=== PATIENT | female | born 1940 | race African-American/Black ===

== ENCOUNTER 2017-04-23 16:52 | Emergency (ER) | payer MEDICARE, OTHER ==
[~2017-04-23] VITALS: Ht 160 cm; Wt 57.6 kg
[~2017-04-23 16:52] MED LIST: ALPRAZOLAM1 MG PO; DORZOLAMIDE HCL10 ML RIGHT EYE; NORCO 5-325 TA1 EACH PO; NORVASC10 MG PO
[2017-04-23] MEDS ORDERED: Meclizine 25mg tab ORAL PRN (17:30)
[2017-04-23 18:30] VITALS: BP 153/82
[2017-04-23 19:30] VITALS: BP_SYST 144; BP_SYST 151; BP_DIAS 94; BP_DIAS 95
[2017-04-23 19:51] LABS: BASOPHILS % (AUTO) 1.3 % (0.0-2.0); EOSINOPHILS % (AUTO) 2.6 % (0.0-3.0); LYMPHOCYTES % (AUTO) 41.3 % (20.0-45.0); MEAN CORPUSCULAR HEMOGLOBIN 27.4 PG (27.0-31.0); MEAN CORPUSCULAR HGB CONC 31.1 G/DL (32.0-36.0); MEAN CORPUSCULAR VOLUME 88 FL (80-99); MEAN PLATELET VOLUME 6.3 FL (6.5-10.1); MONOCYTES % (AUTO) 5.4 % (1.0-10.0); NEUTROPHILS % (AUTO) 49.3 % (45.0-75.0); PLATELET COUNT 351 K/UL (150-450); RED BLOOD COUNT 4.61 M/UL (4.20-5.40); RED CELL DISTRIBUTION WIDTH 14.6 % (11.6-14.8)
[2017-04-23 19:53] LABS: APPEARANCE,URINE SLIGHTLY CLOUDY; KETONES,URINE NEGATIVE (NEGATIVE); LEUKOCYTE ESTERASE ,URINE NEGATIVE (NEGATIVE); NITRITE,URINE NEGATIVE (NEGATIVE); PH,URINE 7 (4.5-8.0); PROTEIN,URINE NEGATIVE (NEGATIVE); UROBILINOGEN,URINE NORMAL MG/DL (0.0-1.0)
[2017-04-23 20:09] LABS: BACTERIA,URINE OCCASIONAL /HPF; RBC,URINE 0-2 /HPF (0 - 2); SQUAMOUS EPITHELIAL CELL,UR OCCASIONAL /LPF (NONE/OCC); WBC,URINE 0 /HPF (0 - 2)
[2017-04-23 20:16] LABS: TROPONIN I < 0.30 ng/mL (<=0.30)
[2017-04-23 20:19] LABS: ALANINE AMINOTRANSFERASE 6 U/L (3-33); ALBUMIN/GLOBULIN RATIO 0.8 (1.0-2.7); ANION GAP 16 (5-15); ASPARTATE AMINO TRANSFERASE 17 U/L (5-40); CALCIUM 9.7 mg/dL (8.6-10.2); CARBON DIOXIDE 27 mEQ/L (20-30); CHLORIDE 95 mEQ/L (98-107); CREATININE 0.9 mg/dL (0.5-0.9); HEMOLYSIS 0; POTASSIUM 4.1 mEQ/L (3.4-4.9); PROTHROMBIN TIME 10.2 SEC (9.30-11.50); SODIUM 138 mEQ/L (135-145); TOTAL PROTEIN 9.6 g/dL (6.6-8.7)
[2017-04-23 20:30] VITALS: BP 138/74
[2017-04-23] MEDS ORDERED: Norco 10mg/325mg tab ORAL ONE (20:45)
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
[2017-04-23] MEDS ORDERED: VISTARIL25 M1 PO (22:29)
[2017-04-23 22:30] VITALS: BP 153/71
[2017-04-23 22:50] VITALS: BP 147/71
--- NOTE | 2017-04-24 08:13 | Diagnostic Imaging Report ---
Indications: Shortness of breath, dizziness Technique: Portable AP chest Findings: Comparison: 09/01/2012 Cardiac silhouette remains normal in size. Pulmonary vasculature remains within normal limits. Inspiratory effort has decreased. Visualized portions of lungs and pleura remain clear. Levoscoliosis, thoracic vertebral degenerative changes unchanged. IMPRESSION: No evidence of acute disease, unchanged Stable chronic changes as described
--- NOTE | 2017-04-26 20:16 | Cardiology Report ---
APPROVED REPORT EKG Measurement Heart [id number] Normal sinus rhythm Minimal voltage criteria for LVH, may be normal variant Borderline ECG
== END 2017-04-23 22:50 | disposition home or self-care (01) ==
LOC: EMR 17:15
DX: F43.10 Post-traumatic stress disorder, unspecified (principal); X58.XXXA Exposure to other specified factors, initial encounter; Y93.9 Activity, unspecified; Y92.9 Unspecified place or not applicable; F43.20 Adjustment disorder, unspecified; R42 Dizziness and giddiness; G89.29 Other chronic pain; Z88.6 Allergy status to analgesic agent; I10 Essential (primary) hypertension
CPT/HCPCS: 36415; 71010; 80053; 81003; 82550; 83880; 84484; 85025; 85610; 85730; 93005; 99283

== ENCOUNTER 2017-10-07 12:38 | Day surgery (SDC) | payer MEDICARE, OTHER ==
--- NOTE | 2017-10-06 15:00 | Pre-op HX & Phy Repo 2 SIG ---
DATE OF ADMISSION: 10/07/2017 PRE-ENDOSCOPY HISTORY AND PHYSICAL DATE OF ENDOSCOPY: 10/07/2017. HISTORY: The patient is a 76-year-old female in fairly stable health who has had surgery for ulcerative colitis including proctocolectomy and Kock pouch continent ileostomy. The patient recently has developed difficulty inserting her intubation catheter because of stenosis of the stoma and was going to undergo endoscopy of her Kock pouch. 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 OPERATIONS: See the above. MEDICATIONS: [place], Xanax and Lexapro. ALLERGIES: Dilaudid and codeine cause side effects. PHYSICAL EXAMINATION: GENERAL: The patient is well developed and well nourished. No distress. HEENT: Within normal limits. LUNGS: Clear. HEART: Regular rhythm. BREASTS: Without masses. ABDOMEN: Soft. There is a long midline scar with two small areas in the midline incision at the mid point and lower pole, which are the openings of the enterocutaneous fistula tracts. PELVIC: Per primary care physicians. RECTAL: Status post proctectomy. EXTREMITIES: Without edema. NEUROLOGIC: No lateralizing findings. IMPRESSION: 1. Malfunctioning Kock pouch with difficulty with intubation and stenotic stoma. 2. History of ulcerative colitis. 3. Status post multiple abdominal operations. 3.1. Proctocolectomy and Ivana ileostomy in 1978. 3.2. Kock pouch in 1987 followed by two subsequent revisions. 3.3. Laparotomy with revision of partially slipped valve of Kock pouch in 11/2011. 3.4. Revision of Kock pouch stoma in 03/2012. 3.5. Laparotomy with repair of Kock pouch perforation in 07/2012. PLAN: The patient will undergo endoscopy of her pouch without requiring any anesthesia or sedation. She understands and agrees to proceed. Juan Torrez M.D. DR: KEENA JOB#: [id number] CC:
[~2017-10-07] VITALS: Ht 160 cm; Wt 56.2 kg
[~2017-10-07 12:38] MED LIST changes: +VISTARIL25 M1 PO
--- NOTE | 2017-10-07 12:45 | Pre-Procedure Note/Attestation ---
Pre-Procedure Note/Attestation Complete Prior to Procedure Planned Procedure: not applicable Procedure Narrative: Kock Pouch endoscopy Indications for Procedure Pre-Operative Diagnosis: malfunctioning Kock Pouch continent ileostomy Attestation I attest that I discussed the nature of the procedure; its benefits; risks and complications; and alternatives (and the risks and benefits of such alternatives ), prior to the procedure, with the patient (or the patient's legal outbound telemarketing representative). I attest that, if there was a reasonable possibility of needing a blood transfusion, the patient (or the patient's legal outbound telemarketing representative) was given the [facility] standardized written summary, pursuant to the [place] Blood Safety Act ([place] Health and Safety Code # 1645, as amended). I attest that I re-evaluated the patient just prior to the surgery and that there has been no change in the patient's H&P, except as documented below:none JOSEPH MOREIRA Oct 07, 2017 12:45
[2017-10-07 13:23] VITALS: BP 140/88
--- NOTE | 2017-10-07 13:38 | Brief Operative Note ---
Immediate Post Operative Note Operative Note Pre-op Diagnosis: malfunctioning Kock Pouch continent ileostomy Procedure: Kock Pouch endoscopy Post-op Diagnosis: stoma stenosis Post-op Diagnosis: same as pre-op Findings: consistent w/pre-op dx studies Surgeon: amanda Anesthesia: other - none Specimen: none Complications: none Condition: stable Fluids: none Estimated Blood Loss: none Drains: none Implant(s) used?: No JOSEPH MOREIRA Oct 07, 2017 13:38
[2017-10-07 13:40] VITALS: BP 139/94
[2017-10-07 14:35] VITALS: BP 134/95
--- NOTE | 2017-10-07 19:15 | Procedure Note ---
DATE OF PROCEDURE: 10/07/2017 ENDOSCOPIST: Juan Torrez M.D. FIRER LOW PRESSURE: None. ANESTHESIA: None. SEDATION: None. PRE-ENDOSCOPY DIAGNOSES: 1. Malfunctioning Kock pouch continent ileostomy with difficulty with intubation. 2. History of ulcerative colitis. 3. Status post proctocolectomy and Kock pouch. POST-ENDOSCOPY DIAGNOSES: 1. Malfunctioning Kock pouch continent ileostomy with difficulty with intubation. 2. History of ulcerative colitis. 3. Status post proctocolectomy and Kock pouch. ENDOSCOPY PERFORMED: Kock pouch endoscopy. FINDINGS: Stenosis of the stoma with slight angulation of the access segment with a normal pouch and normal nipple valve. DESCRIPTION OF PROCEDURE: The patient was positioned supine in the GI lab without any anesthesia or sedation given or required. Using a GIF-P140 endoscope, the stoma was entered and there was one mild angulation at the 3 cm depth, but the pouch was readily entered. The distance to the tip of the valve was approximately 7 cm. The pouch was distensible and appears normal. Retroflexed views revealed a circumferentially well-formed nipple valve. Withdrawal views confirmed the above findings. After removing the endoscope, I was able to readily insert a 28-Syriac Miller catheter into the pouch to decompress it. The patient will be given a small and large stent to help keep the stoma from becoming more stenotic. The patient tolerated the endoscopy well and was given both a 28-Syriac Miller and 26-Syriac Miller catheters to supplement her 30-Syriac Medena intubation catheters. Juan Torrez M.D. DR: Sole JOB#: [id number] CC:
== END 2017-10-07 14:35 | disposition home or self-care (01) ==
LOC: GAS 12:38
DX: K94.13 Enterostomy malfunction (principal); K51.90 Ulcerative colitis, unspecified, without complications; Z90.49 Acquired absence of other specified parts of digestive tract; Z88.6 Allergy status to analgesic agent

== ENCOUNTER 2018-05-11 09:55 | Inpatient (IN) | payer MEDICARE, MEDICAID ==
[~2018-05-11] VITALS: Ht 160 cm; Wt 72.6 kg
[2018-05-11] MEDS: D5 1/4NS w/KCl 20mEq 1,000 ML IV SCH ×2 (12:49→22:59)
[2018-05-11 12:50] VITALS: BP 132/92
[2018-05-11 13:18] LABS: APPEARANCE,URINE CLEAR; BILIRUBIN, URINE NEGATIVE (NEGATIVE); COLOR,URINE PALE YELLOW; GLUCOSE, URINE (UA) NEGATIVE (NEGATIVE); KETONES,URINE NEGATIVE (NEGATIVE); LEUKOCYTE ESTERASE ,URINE 3+ (NEGATIVE); NITRITE,URINE NEGATIVE (NEGATIVE); PH,URINE 6.5 (4.5-8.0); PROTEIN,URINE NEGATIVE (NEGATIVE); UROBILINOGEN,URINE NORMAL MG/DL (0.0-1.0)
[2018-05-11 13:20] LABS: ANION GAP 9 mmol/L (5-15); BLOOD UREA NITROGEN 6 mg/dL (7-18); CALCIUM 9.8 MG/DL (8.5-10.1); CARBON DIOXIDE 30 MMOL/L (21-32); CHLORIDE 101 MMOL/L (98-107); CREATININE 0.9 MG/DL (0.55-1.30); POTASSIUM 3.5 MMOL/L (3.5-5.1); SODIUM 140 MMOL/L (136-145)
[2018-05-11 13:25] LABS: ALANINE AMINOTRANSFERASE 14 U/L (12-78); ALBUMIN/GLOBULIN RATIO 0.6 (1.0-2.7); ALKALINE PHOSPHATASE 101 U/L (46-116); ASPARTATE AMINO TRANSFERASE 18 U/L (15-37); BILIRUBIN,TOTAL 0.3 MG/DL (0.2-1.0)
[2018-05-11 13:42] LABS: EOSINOPHILS % (AUTO) 2.6 % (0.0-3.0); HEMATOCRIT 40.1 % (37.0-47.0); HEMOGLOBIN 12.3 G/DL (12.0-16.0); LYMPHOCYTES % (AUTO) 36.1 % (20.0-45.0); MEAN CORPUSCULAR VOLUME 85 FL (80-99); MONOCYTES % (AUTO) 4.2 % (1.0-10.0); NEUTROPHILS % (AUTO) 56.1 % (45.0-75.0); PLATELET COUNT 337 K/UL (150-450); RED BLOOD COUNT 4.72 M/UL (4.20-5.40); RED CELL DISTRIBUTION WIDTH 14.8 % (11.6-14.8); WHITE BLOOD COUNT 9.1 K/UL (4.8-10.8)
--- NOTE | 2018-05-11 13:54 | Emergency Room Report ---
History of Present Illness General Chief Complaint: Malfunctioning Gastric Tube Present Illness HPI This patient of Dr. Torrez (surgeon) is here b/c she cannot intubate her BCIR site (stoma) right abdomen. It has gotten progressively more difficult to thread and now she cannot. She has had this difficulty before but it's worse now. A/w mild generalized abd bloating/mild distention. No vomiting, no fever, no dysuria, no urgency. She last underwent procedure Oct 2017 to open pouch. DATE OF ENDOSCOPY: 10/07/2017. HISTORY: The patient is a 76-year-old female in fairly stable health who has had surgery for ulcerative colitis including proctocolectomy and Kock pouch continent ileostomy. The patient recently has developed difficulty inserting her intubation catheter because of stenosis of the stoma and was going to undergo endoscopy of her Kock pouch. 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 MEDICATIONS: [place], Xanax and Lexapro. IMPRESSION: 1. Malfunctioning Kock pouch with difficulty with intubation and stenotic stoma. 2. History of ulcerative colitis. 3. Status post multiple abdominal operations. 3.1. Proctocolectomy and Ivana ileostomy in 1978. 3.2. Kock pouch in 1987 followed by two subsequent revisions. 3.3. Laparotomy with revision of partially slipped valve of Kock pouch in 11/2011. 3.4. Revision of Kock pouch stoma in 03/2012. 3.5. Laparotomy with repair of Kock pouch perforation in 07/2012. Allergies: Coded Allergies: CODEINE (Verified Allergy, Unknown, 11/24/11) MORPHINE (Verified Allergy, Unknown, 07/22/12) Nursing Documentation-PMH Hx Cardiac Problems: No Hx Hypertension: Yes Hx Asthma: No Hx COPD: No Hx Cancer: No Hx Gastrointestinal Problems: Yes - tim pouch Hx Neurological Problems: No Review of Systems Constitutional: Reports: no symptoms Eye: Reports: no symptoms ENT: Reports: no symptoms Respiratory: Reports: no symptoms Cardiovascular: Reports: no symptoms Gastrointestinal: Reports: see HPI, abdominal pain Genitourinary: Reports: no symptoms Musculoskeletal: Reports: no symptoms Skin: Reports: no symptoms Psychiatric: Reports: no symptoms Neurological: Reports: no symptoms Endocrine: Reports: no symptoms Hematologic/Lymphatic: Reports: no symptoms Allergic: Reports: no symptoms Physical Exam Vital Signs Date Time Temp Pulse Resp B/P (MAP) Pulse Ox O2 Delivery O2 Flow Rate FiO2 05/11/18 10:08 98.1 84 18 147/95 95 Room Air 98.1 Sp02 EP Interpretation: reviewed, normal General Appearance: normal inspection, well appearing, no apparent distress, alert, GCS 15, non-toxic Head: normocephalic, atraumatic Eyes: bilateral eye normal inspection, bilateral eye PERRL, bilateral eye EOMI ENT: normal ENT inspection, hearing grossly normal, normal pharynx, no angioedema, normal voice, moist mucus membranes Neck: normal inspection, full range of motion, supple, no meningismus, no bony tend Respiratory: normal inspection, lungs clear, normal breath sounds, no rhonchi, no respiratory distress, no retraction, no accessory muscle use, no wheezing Cardiovascular #1: normal inspection, regular rate, rhythm, no edema Gastrointestinal: normal bowel sounds, soft, no mass, non-distended, other - right mid abdomen with opening; no cellulitis Musculoskeletal: gait/station normal, normal range of motion Neurologic: normal inspection, alert, oriented x3, responsive, motor strength/ tone normal Psychiatric: normal inspection, judgement/insight normal, memory normal Suicide Risk Assessment: Suicidal Ideation: No Had intent to initiate attempt: No Pt's plan for suicide attempt: No Has means to complete attempt: No Skin: normal inspection, normal color, no rash, warm/dry Medical Decision Making Diagnostic Impression: Primary Impression: Malfunction of percutaneous endoscopic gastrostomy (PEG) tube Additional Impression: malfunction of pouch ER Course Per d/w Dr. Lore Maxwell RN on came to see if she could open the site but all she could do was pass a 24 munson with very little ~20 cc NS. Essentially obstructed. Dr. Torrez notified and aware and requested labs, no CT and he plans to definitively manage as an inpatient today. Last Vital Signs Date Time Temp Pulse Resp B/P (MAP) Pulse Ox O2 Delivery O2 Flow Rate FiO2 05/11/18 12:50 80 9 132/92 100 Room Air 05/11/18 10:08 98.1 98.1 Disposition: ADMITTED INPATIENT Condition: Serious Referrals: Juan Torrez MD (PCP) Vipin Villasenor M.D. May 11, 2018 13:54
[2018-05-11] MEDS ORDERED: cefTRIAXone 1 GM in D5W 55 ML IVPB ONE (14:00)
[2018-05-11] MEDS ORDERED: XALATAN2.5 ML BOTH EYES (15:55)
[2018-05-11] MEDS: ALPRAZolam 0.5mg tab ORAL SCH (17:53)
[2018-05-11] MEDS: Norco 5mg/325mg tab ORAL PRN (17:53)
[2018-05-11] MEDS: Dorzolamide 2% 10ml Btl RIGHT EYE SCH (19:01)
[2018-05-11 20:00] VITALS: BP 131/85
[2018-05-11] MEDS: Latanoprost 0.005% Opth 2.5ml Soln BOTH EYES SCH (22:00)
--- NOTE | 2018-05-11 22:00 | History and Physical Report ---
DATE OF ADMISSION: 05/11/2018 REASON FOR ADMISSION: Inability to catheterize her Kock pouch continent ileostomy. HISTORY: The patient is a 77-year-old female, in fairly stable health, who has previously undergone surgery for ulcerative colitis including proctocolectomy and Kock pouch continent ileostomy. She was evaluated in October 2017 because of some difficulty inserting her intubation catheter to evacuate stool and gas. At that time, examination revealed a mild stenosis of the stoma with slight angulation of the access segment at 3 cm in depth. She also has a known chronic intermittent very low volume drainage enterocutaneous fistula related to the pouch, which is quiescent prolonged periods of time many months and then activates and drains and then becomes quiescent again. Now, she has been unable to intubate for nearly 24 hours and feels distended. The catheter only goes in a short way. MEDICATIONS: Alprazolam 1 mg 2 tabs p.o. b.i.d., Xalatan 1 drop both eyes daily, dorzolamide hydrochloride 1 mL right eye b.i.d., and [place] 5/325 every 6 hours p.r.n. chronic musculoskeletal pain. In the past, she has taken Lexapro. ALLERGIES: Dilaudid and codeine cause side effects. PHYSICAL EXAMINATION: GENERAL: She is well developed, well nourished, was afebrile with stable vital signs. HEENT: Within normal limits. LUNGS: Clear. HEART: Regular rhythm. BREASTS: Without masses. ABDOMEN: Soft with a long midline scar with two small punctate openings in the midline incision at the midpoint and near the lower pole, which currently are dry without drainage, covered with a 4 x 4, which I replaced. The stoma of her Kock pouch is low in the right lower quadrant and readily admits a 28-Burkin[place] Miller catheter, which I was able to insert without undue difficulty into the pouch confirming its location with irrigation and securing it to the skin with tape connecting to a continuous gravity drainage bag. The abdomen is mildly distended, but nontender. PELVIC: Per primary care physicians. The patient states she has had two episodes in the past of vaginal bleeding. She is under the care of [facility] doctors for this. RECTAL: Status post proctectomy. EXTREMITIES: Without edema. NEUROLOGIC: No acute findings, but this patient states, she has difficulty with her gait and feels that she is bouncing around and under the care of [facility] doctors for this. OPERATIONS: Please see complete list at the end of this dictation. LABORATORY DATA: Review of laboratory data reveals white blood cell count 9100 and hemoglobin 12.3. Urinalysis reveals likely urinary tract infection. The patient received Rocephin 2 g intravenous in the emergency room. Basic metabolic profile all within normal limits. Albumin 4.0. IMPRESSION: 1. Malfunctioning Kock pouch with inability to intubate, result again in mild functional small bowel obstruction. 2. History of ulcerative colitis. 3. Status post multiple abdominal operations. 3.1. Proctocolectomy and Ivana ileostomy in 1978. 3.2. Kock pouch in 1987 followed by two subsequent revisions. 3.3. Laparotomy with revision of partially slipped valve of Kock pouch in November 2011. 3.4. Revision of Kock pouch stoma in March 2012. 3.5. Laparotomy with repair of spontaneous Kock pouch perforation in July 2012. PLAN: The patient will be admitted and undergo intravenous hydration with continuous decompression of her Kock pouch with an indwelling catheter to continuous drainage, which will be flushed by the nursing staff every three hours and p.r.n. Once she is decompressed, I will see if she can tolerate a low-residue diet. If she develops additional symptoms despite an indwelling catheter, she will need to undergo CT scan of the abdomen and pelvis with contrast. I have discussed this in fully with the patient and she understands. Juan Torrez M.D. DR: JENIFFER JOB#: [id number] CC:
[2018-05-12] VITALS: BP 123/75
[2018-05-12] MEDS: Norco 5mg/325mg tab ORAL PRN ×4 (01:46→21:13)
[2018-05-12 04:00] VITALS: BP 125/70
--- NOTE | 2018-05-12 07:13 | General Progress Note ---
Progress Note Progress Note Doing well overnight with thick Kock pouch ileo output. Abdomen soft Imp. Stable Plan: Begin RN supervised Kock pouch self-intubations q3h am to hs and prn Juan Torrez MD May 12, 2018 07:13
[2018-05-12 08:00] VITALS: BP_SYST 113; BP_SYST 142; BP_DIAS 72; BP_DIAS 98
[2018-05-12] MEDS: Dorzolamide 2% 10ml Btl RIGHT EYE SCH ×2 (08:39→17:42)
[2018-05-12] MEDS: ALPRAZolam 0.5mg tab ORAL SCH ×2 (08:39→17:42)
[2018-05-12] MEDS ORDERED: D5 1/4NS w/KCl 20mEq 1,000 ML IV SCH ×2 (09:00→12:30)
[2018-05-12 12:00] VITALS: BP 137/91
[2018-05-12 16:00] VITALS: BP 139/93
--- NOTE | 2018-05-12 16:54 | General Progress Note ---
Progress Note Progress Note Having difficulty intubating with 30 fr Medena or Angelika catheter. 28 Miller enters fairly readily. Very thick effluent Plan; try intubating seated on toilet with 28 Miller, or standing vitamin C for thick effluent if she becomes able to intubate will discharge tomorrow Juan Torrez MD May 12, 2018 16:54
[2018-05-12] MEDS ORDERED: Ascorbic Acid 500mg tab ORAL SCH (17:00)
[2018-05-12] MEDS ORDERED: Ascorbic Acid 500mg tab ORAL PRN (17:00)
[2018-05-12 20:00] VITALS: BP 117/73
[2018-05-12] MEDS: Latanoprost 0.005% Opth 2.5ml Soln BOTH EYES SCH (20:31)
[2018-05-13] VITALS: BP 130/83
[2018-05-13] MEDS: Norco 5mg/325mg tab ORAL PRN ×5 (03:01→21:43)
[2018-05-13 04:00] VITALS: BP 139/92
[2018-05-13 08:00] VITALS: BP 131/84
[2018-05-13] MEDS: Dorzolamide 2% 10ml Btl RIGHT EYE SCH ×2 (08:22→17:38)
[2018-05-13] MEDS: ALPRAZolam 0.5mg tab ORAL SCH ×2 (08:22→17:37)
--- NOTE | 2018-05-13 08:41 | General Progress Note ---
Progress Note Progress Note AVSS Able to intubate her Kock pouch sitting on toilet using 28Fr Miller with 150cc output overnight Abdomen soft Imp. Malfunctioning Kock pouch with difficulty intubating Plan: Kock pouch endoscopy today Juan Torrez MD May 13, 2018 08:41
--- NOTE | 2018-05-13 08:42 | Pre-Procedure Note/Attestation ---
Pre-Procedure Note/Attestation Complete Prior to Procedure Planned Procedure: not applicable Procedure Narrative: Kock pouch endoscopy Indications for Procedure Pre-Operative Diagnosis: Malfunctioning Kock pouch with difficulty intubating Attestation I attest that I discussed the nature of the procedure; its benefits; risks and complications; and alternatives (and the risks and benefits of such alternatives ), prior to the procedure, with the patient (or the patient's legal business representative). I attest that, if there was a reasonable possibility of needing a blood transfusion, the patient (or the patient's legal business representative) was given the [facility] standardized written summary, pursuant to the [place] Blood Safety Act ([place] Health and Safety Code # 1645, as amended). I attest that I re-evaluated the patient just prior to the surgery and that there has been no change in the patient's H&P, except as documented below:none Juan Torrez MD May 13, 2018 08:42
--- NOTE | 2018-05-13 11:52 | Brief Operative Note ---
Immediate Post Operative Note Operative Note Pre-op Diagnosis: Malfunctioning Kock pouch with difficulty intubating Procedure: Kock pouch endoscopy Post-op Diagnosis: angulation of access segment Post-op Diagnosis: same as pre-op Findings: consistent w/pre-op dx studies Surgeon: amanda Anesthesia: other - none Specimen: none Complications: none Condition: stable Fluids: none Estimated Blood Loss: none Drains: none Implant(s) used?: No Juan Torrez MD May 13, 2018 11:52
[2018-05-13 12:30] VITALS: BP 143/88
[2018-05-13] MEDS ORDERED: NS Irrig 1000ml ONE (14:06)
[2018-05-13 16:00] VITALS: BP 133/81
--- NOTE | 2018-05-13 18:46 | Procedure Note ---
DATE OF PROCEDURE: 05/13/2018 ENDOSCOPIST: Juan Torrez M.D. ANESTHESIA: None. SEDATION: None. PRE-ENDOSCOPY DIAGNOSES: 1. Malfunctioning Kock pouch with difficulty with intubation. 2. History of ulcerative colitis. 3. Status post multiple abdominal operations including proctocolectomy and Ivana ileostomy in 1978, Kock pouch in 1987 with multiple revisions. POST-ENDOSCOPY DIAGNOSES: 1. Malfunctioning Kock pouch with difficulty with intubation. 2. History of ulcerative colitis. 3. Status post multiple abdominal operations including proctocolectomy and Ivana ileostomy in 1978, Kock pouch in 1987 with multiple revisions. ENDOSCOPY PERFORMED: Kock pouch endoscopy. FINDINGS: Angulation of the access segment with a normal pouch and valve. DESCRIPTION OF PROCEDURE: The patient was taken to the GI lab and without any anesthesia or sedation, positioned supine. Using a GIF-P140, the stoma in the right lower quadrant was entered and the distance to the tip of the nipple valve was approximately 6 cm. The pouch was entered and was moderately distensible with normal mucosa. Retroflexed views revealed a circumferentially well-formed valve. Withdrawal views confirmed the finding of the angulation at approximately 3 cm deep to the stomal orifice. After removing the endoscope, I was able to readily insert a 28-Yi Miller catheter without any difficulty whatsoever and decompressed her pouch. The patient tolerated the endoscopy well. Juan Torrez M.D. DR: REKHA JOB#: [id number] CC:
[2018-05-13 20:00] VITALS: BP 122/77
[2018-05-13] MEDS: Latanoprost 0.005% Opth 2.5ml Soln BOTH EYES SCH (21:38)
[2018-05-14] VITALS: BP 120/76
[2018-05-14] MEDS: Norco 5mg/325mg tab ORAL PRN ×3 (02:21→12:54)
[2018-05-14 04:00] VITALS: BP 124/77
--- NOTE | 2018-05-14 08:10 | General Progress Note ---
Progress Note Progress Note Doing self-intubations with 28Fr Miller. Abdomen soft. doing well Plan; Discharge with multiple catheters f/u office 1 week Juan Torrez MD May 14, 2018 08:10
[2018-05-14] MEDS: Dorzolamide 2% 10ml Btl RIGHT EYE SCH (08:58)
[2018-05-14] MEDS: ALPRAZolam 0.5mg tab ORAL SCH (08:58)
[2018-05-14 12:00] VITALS: BP 128/87
--- NOTE | 2018-05-17 08:16 | Discharge Summary ---
Discharge Summary Hospital Course Date of Admission May 11, 2018 at 12:56 Date of Discharge May 14, 2018 at 14:30 Admitting Diagnosis Malfunctioning Kock pouch with difficulty intubating Reason for Hospitalization: Kock pouch HPI Teagan Sandhu is a 77 year old female who was admitted on May 11, 2018 at 12: 56 for ,alfunctioning Kock pouch with difficulty intubating. Patient was admitted for further management and Kock pouch endoscopy. Procedures s/p 05/[address] Lore Malone pouch endoscopy Indications for Procedure Pre-Operative Diagnosis: Malfunctioning Kock pouch with difficulty intubating Hospital Course admitted IV hydration continuous decompression of Kock pouch with an indwelling catheter to continuous drainage, flushed Q3 hrs by nursing staff on 05/12- patient was doing well overnight with thick Kock pouch ileo output. started on RN supervised Kock pouch self-intubations q3h am to hs and prn on 05/13 - patient was able to intubate her Kock pouch sitting on toilet , using 28Fr Miller with 150cc output overnight s/p Kock pouch endoscopy 05/13 on 05/14- patient was doing self-intubations with 28Fr Miller. tolerated low-residue diet. pain management addressed stable for discharge with multiple catheters f/u office 1 week dc instructions provided FINAL DIAGNOSES 1. Malfunctioning Kock pouch with inability to intubate, resulting in mild functional small bowel obstruction. 2. History of ulcerative colitis. 3. Status post multiple abdominal operations. 3.1. Proctocolectomy and Ivana ileostomy in 1978. 3.2. Kock pouch in 1987 followed by two subsequent revisions. 3.3. Laparotomy with revision of partially slipped valve of Kock pouch in November 2011. 3.4. Revision of Kock pouch stoma in March 2012. 3.5. Laparotomy with repair of spontaneous Kock pouch perforation in July 2012. 4. s/p 05/13 Kock pouch endoscopy Discharge Medications Continued Medications: Alprazolam* (Xanax*) 1 Mg Tablet 2 TAB PO BID, #15 TAB (This prescription has been renewed) Hydrocodone Bit/Acetaminophen 5-325* ([place] 5-325*) 1 Each Tablet 1 TAB PO Q6H PRN, TAB (This prescription has been renewed) Take 1 tablet by mouth every 6 hours as needed for pain. Discharge Condition Upon Discharge: stable Discharge Disposition Patient was discharged to Home (01) Discharge Instructions Discharge Instructions Special Instructions I have been assigned to complete a D/C Summary on this account. I was not involved in the patient management Elizabeth Biggs NP May 17, 2018 08:16
== END 2018-05-14 14:30 | disposition home or self-care (01) | DRG 394 ==
LOC: EMR 11:17 → EDBEDREQ 12:40 → 3E 12:56
PROC: 0DJD8ZZ Inspection of Lower Intestinal Tract, Via Natural or Artificial Opening Endoscopic (ICD-10-PCS; principal; 2018-05-13 11:40)
DX: K94.13 Enterostomy malfunction (principal); K56.609 Unspecified intestinal obstruction, unspecified as to partial versus complete obstruction; Y83.2 Surgical operation with anastomosis, bypass or graft as the cause of abnormal reaction of the patient, or of later complication, without mention of misadventure at the time of the procedure; Y92.89 Other specified places as the place of occurrence of the external cause
CPT/HCPCS: 36415; 80053; 81001; 85025; 85610; 87086; 99285

== ENCOUNTER 2018-06-01 11:21 | Emergency (ER) | payer MEDICARE, MEDICAID ==
[~2018-06-01] VITALS: Ht 157.5 cm; Wt 49.9 kg
[~2018-06-01 11:21] MED LIST changes: +XALATAN2.5 ML BOTH EYES
[2018-06-01 11:39] VITALS: BP 122/85
--- NOTE | 2018-06-01 12:34 | General Progress Note ---
Progress Note Progress Note patient recently discharged after having difficulty catheterizing her Kock Pouch continent ileostomy. Issue recurred yesterday with inability to intubate for nearly 24 hours. No nausea or emesis. Feels okay. endoscopy 2 weeks ago revealed a stable, known angulation at 3cm depth into the stoma. Abdomen soft, mild distention stoma small I was unable to insert a 26Fr Munson but a 24Fr munson entered fairly readily. Aspirated 100cc of thick effluent and flatus Imp. Malfunctioning Kock Pouch continent ileostomy with difficulty intubating Plan; patient provided two 24Fr Munson catheters, advised re lubrication and vitamin c to thin effluent. To resume 30Fr Angelika catheter or 28Fr munson in 48 hours f/u office prn - advised Juan Torrez MD Jun 01, 2018 12:34
--- NOTE | 2018-06-01 13:35 | Emergency Room Report ---
History of Present Illness General Chief Complaint: Malfunctioning Gastric Tube Source: Patient Present Illness HPI Patient has been unable to access her Burr pouch for the past day. She was sent in by her specialist Dr. Torrez. Allergies: Coded Allergies: CODEINE (Verified Allergy, Unknown, 11/24/11) MORPHINE (Verified Allergy, Unknown, 07/22/12) Patient History Past Medical History: see triage record, other - Rectal fistula Past Surgical History: other - ileostomy, burr pouch Social History: Denies: smoking, alcohol use, drug use Reviewed Nursing Documentation: PMH: Agreed; PSxH: Agreed Nursing Documentation-PMH Hx Cardiac Problems: No Hx Hypertension: Yes Hx Asthma: No Hx COPD: No Hx Cancer: No Hx Gastrointestinal Problems: Yes - burr pouch Hx Neurological Problems: No Review of Systems All Other Systems: negative except mentioned in HPI Physical Exam Vital Signs Date Time Temp Pulse Resp B/P (MAP) Pulse Ox O2 Delivery O2 Flow Rate FiO2 06/01/18 11:29 98.0 88 18 122/85 98 Room Air 98.1 Sp02 EP Interpretation: reviewed, normal General Appearance: no apparent distress, alert, GCS 15, non-toxic Head: normocephalic, atraumatic Eyes: bilateral eye normal inspection, bilateral eye PERRL ENT: hearing grossly normal, normal pharynx, no angioedema, normal voice Neck: full range of motion, supple/symm/no masses Respiratory: chest non-tender, lungs clear, normal breath sounds, no respiratory distress, no retraction, no accessory muscle use, speaking full sentences Cardiovascular #1: regular rate, rhythm, no edema Gastrointestinal: normal bowel sounds, non tender, soft, non-distended, no guarding, no rebound, other - ileostomy pouch Rectal: deferred Musculoskeletal: back normal, gait/station normal, normal range of motion, non- tender Neurologic: alert, oriented x3, responsive, motor strength/tone normal, sensory intact, speech normal Psychiatric: judgement/insight normal, memory normal, mood/affect normal, no suicidal/homicidal ideation Skin: normal color, no rash, warm/dry, well hydrated Medical Decision Making Diagnostic Impression: Primary Impression: malfunction of pouch ER Course The patient had been unable to access her Burr pouch. Dr. Torrez came to the emergency department and access to it with a 24 [place] catheter. The patient was given multiple 24 [place] catheters. She will be following up with Dr. Torrez. See Dr. Torrez's note. Last Vital Signs Date Time Temp Pulse Resp B/P (MAP) Pulse Ox O2 Delivery O2 Flow Rate FiO2 06/01/18 11:39 98.1 88 18 122/85 98 Room Air 98.1 Status: improved Disposition: HOME, SELF-CARE Condition: Improved Referrals: Juan Torrez MD (PCP) Paty Slater DO Jun 01, 2018 13:35
[2018-06-01 14:14] VITALS: BP 122/85
== END 2018-06-01 14:14 | disposition home or self-care (01) ==
LOC: EMR 12:02
DX: K94.13 Enterostomy malfunction (principal); Y83.8 Other surgical procedures as the cause of abnormal reaction of the patient, or of later complication, without mention of misadventure at the time of the procedure; Y92.9 Unspecified place or not applicable; I10 Essential (primary) hypertension; Z88.5 Allergy status to narcotic agent
CPT/HCPCS: 99283

== ENCOUNTER 2021-01-07 12:44 | Inpatient (IN) | payer MEDICARE, OTHER ==
[~2021-01-07] VITALS: Ht 160 cm; Wt 57.6 kg
[~2021-01-07 12:44] MED LIST changes: +DORZOLAMIDE HCL10 ML BOTH EYES; -DORZOLAMIDE HCL10 ML RIGHT EYE
[2021-01-07 15:02] LABS: BASOPHILS % (AUTO) 1.1 % (0.0-2.0); EOSINOPHILS % (AUTO) 2.8 % (0.0-3.0); HEMATOCRIT 38.1 % (37.0-47.0); HEMOGLOBIN 11.5 G/DL (12.0-16.0); LYMPHOCYTES % (AUTO) 36.7 % (20.0-45.0); MEAN CORPUSCULAR VOLUME 85 FL (80-99); MONOCYTES % (AUTO) 4.2 % (1.0-10.0); NEUTROPHILS % (AUTO) 55.2 % (45.0-75.0); PLATELET COUNT 362 K/UL (150-450); RED BLOOD COUNT 4.47 M/UL (4.20-5.40); RED CELL DISTRIBUTION WIDTH 16.3 % (11.6-14.8); WHITE BLOOD COUNT 9.7 K/UL (4.8-10.8)
[2021-01-07 15:09] LABS: APPEARANCE,URINE CLEAR; BILIRUBIN, URINE NEGATIVE (NEGATIVE); COLOR,URINE PALE YELLOW; GLUCOSE, URINE (UA) NEGATIVE (NEGATIVE); KETONES,URINE NEGATIVE (NEGATIVE); LEUKOCYTE ESTERASE ,URINE NEGATIVE (NEGATIVE); NITRITE,URINE NEGATIVE (NEGATIVE); PH,URINE 5 (4.5-8.0); PROTEIN,URINE NEGATIVE (NEGATIVE); UROBILINOGEN,URINE NORMAL MG/DL (0.0-1.0)
[2021-01-07 15:19] LABS: ANION GAP 11 mmol/L (5-15); BLOOD UREA NITROGEN 14 mg/dL (7-18); CALCIUM 9.5 MG/DL (8.5-10.1); CARBON DIOXIDE 27 MMOL/L (21-32); CHLORIDE 103 MMOL/L (98-107); POTASSIUM 3.7 MMOL/L (3.5-5.1); SODIUM 141 MMOL/L (136-145)
[2021-01-07 15:24] LABS: ALANINE AMINOTRANSFERASE 16 U/L (12-78); ALBUMIN 3.6 G/DL (3.4-5.0); ALBUMIN/GLOBULIN RATIO 0.5 (1.0-2.7); ALKALINE PHOSPHATASE 110 U/L (46-116); ASPARTATE AMINO TRANSFERASE 22 U/L (15-37); BILIRUBIN,TOTAL 0.4 MG/DL (0.2-1.0)
[2021-01-07] MEDS ORDERED: Piperacillin/Tazobactam 3.375 GM in NS 110 ML IVPB ONE (15:45)
--- NOTE | 2021-01-07 16:17 | Emergency Room Report ---
History of Present Illness General Chief Complaint: Multiple Trauma/Fall Source: Patient Present Illness HPI 80-year-old female presents with wound to the left leg. States that about a week ago she tripped and fell and scraped her leg. Did not realize it was injured and saw that it started to get swollen and more painful a few days later. There is drainage. Pain is throbbing, 7 out of 10, nonradiating. No other aggravating relieving factors. Denies any other associated symptoms Allergies: Coded Allergies: CODEINE (Verified Allergy, Unknown, 01/07/21) MORPHINE (Verified Allergy, Unknown, 07/22/12) COVID-19 Screening Contact w/high risk pt: No Experienced COVID-19 symptoms?: No COVID-19 Testing performed WEB ANALYST: No Patient History Past Medical History: HTN Past Surgical History: other - tim pouch Pertinent Family History: none Social History: Denies: smoking, alcohol use, drug use Now: No Immunizations: UTD Reviewed Nursing Documentation: PMH: Agreed; PSxH: Agreed Nursing Documentation-PMH Past Medical History: No History, Except For Hx Cardiac Problems: No Hx Hypertension: Yes Hx Pacemaker: No Hx Asthma: No Hx COPD: No Hx Diabetes: No Hx Cancer: No Hx Gastrointestinal Problems: Yes - tim pouch Hx Dialysis: No History Of Psychiatric Problem: No Hx Neurological Problems: No Hx Cerebrovascular Accident: No Hx Seizures: No Review of Systems All Other Systems: negative except mentioned in HPI Physical Exam Vital Signs Date Time Temp Pulse Resp B/P (MAP) Pulse Ox O2 Delivery O2 Flow Rate FiO2 01/07/21 13:51 98.2 78 18 140/73 (95) 100 Room Air Sp02 EP Interpretation: reviewed, normal General Appearance: no apparent distress, alert, GCS 15, non-toxic Head: normocephalic, atraumatic Eyes: bilateral eye normal inspection, bilateral eye PERRL ENT: hearing grossly normal, normal pharynx, no angioedema, normal voice Neck: full range of motion, supple/symm/no masses Respiratory: chest non-tender, lungs clear, normal breath sounds, speaking full sentences Cardiovascular #1: regular rate, rhythm, no edema Cardiovascular #2: 2+ carotid (R), 2+ carotid (L), 2+ radial (R), 2+ radial (L), 2+ dorsalis pedis (R), 2+ dorsalis pedis (L) Gastrointestinal: normal bowel sounds, non tender, soft, non-distended, no guarding, no rebound Rectal: deferred Genitourinary: normal inspection, no CVA tenderness Musculoskeletal: back normal, normal range of motion, gait/station normal, non- tender Neurologic: alert, motor strength/tone normal, oriented x3, sensory intact, responsive, speech normal Psychiatric: judgement/insight normal, memory normal, mood/affect normal, no suicidal/homicidal ideation Reflexes: 3+ bicep (R), 3+ bicep (L), 3+ tricep (R), 3+ tricep (L), 3+ knee (R), 3+ knee (L) Skin: other - 3x3cm area of purulence to anterior L leg. surroudning erythema/induration/swelling Lymphatic: no adenopathy Medical Decision Making Diagnostic Impression: Primary Impression: Cellulitis of left lower extremity ER Course Hospital Course 80-year-old female presents with ulcer/discharge to left leg status post fall Differential diagnoses include: Cellulitis, abscess, rash. Clinical course Patient placed on stretcher. After initial history and physical I ordered labs, blood Cx, IVFs labs reviewed - no leukocytosis, Hb/Hct stable, no electrolyte abnormalities. wound culture obtained Antibiotics given Case discussed with Dr Weeks and he agreed to accept the patient to his service for further care and support Diagnosis - cellulitis of left lower extremity Patient admitted to floor in serious condition Labs Test 01/07/21 14:20 White Blood Count 9.7 K/UL (4.8-10.8) Red Blood Count 4.47 M/UL (4.20-5.40) Hemoglobin 11.5 G/DL (12.0-16.0) Hematocrit 38.1 % (37.0-47.0) Mean Corpuscular Volume 85 FL (80-99) Mean Corpuscular Hemoglobin 25.7 PG (27.0-31.0) Mean Corpuscular Hemoglobin Concent 30.1 G/DL (32.0-36.0) Red Cell Distribution Width 16.3 % (11.6-14.8) Platelet Count 362 K/UL (150-450) Mean Platelet Volume 6.3 FL (6.5-10.1) Neutrophils (%) (Auto) 55.2 % (45.0-75.0) Lymphocytes (%) (Auto) 36.7 % (20.0-45.0) Monocytes (%) (Auto) 4.2 % (1.0-10.0) Eosinophils (%) (Auto) 2.8 % (0.0-3.0) Basophils (%) (Auto) 1.1 % (0.0-2.0) Urine Color Pale yellow Urine Appearance Clear Urine pH 5 (4.5-8.0) Urine Specific [place] 1.020 (1.005-1.035) Urine Protein Negative (NEGATIVE) Urine Glucose (UA) Negative (NEGATIVE) Urine Ketones Negative (NEGATIVE) Urine Blood Negative (NEGATIVE) Urine Nitrite Negative (NEGATIVE) Urine Bilirubin Negative (NEGATIVE) Urine Urobilinogen Normal MG/DL (0.0-1.0) Urine Leukocyte Esterase Negative (NEGATIVE) Sodium Level 141 MMOL/L (136-145) Potassium Level 3.7 MMOL/L (3.5-5.1) Chloride Level 103 MMOL/L (98-107) Carbon Dioxide Level 27 MMOL/L (21-32) Anion Gap 11 mmol/L (5-15) Blood Urea Nitrogen 14 mg/dL (7-18) Creatinine 1.0 MG/DL (0.55-1.30) Estimat Glomerular Filtration Rate > 60 mL/min (>60) Glucose Level 89 MG/DL (74-106) Lactic Acid Level 1.10 mmol/L (0.4-2.0) Calcium Level 9.5 MG/DL (8.5-10.1) Total Bilirubin 0.4 MG/DL (0.2-1.0) Aspartate Amino Transf (AST/SGOT) 22 U/L (15-37) Alanine Aminotransferase (ALT/SGPT) 16 U/L (12-78) Alkaline Phosphatase 110 U/L (46-116) Total Protein 10.3 G/DL (6.4-8.2) Albumin 3.6 G/DL (3.4-5.0) Globulin 6.7 g/dL Albumin/Globulin Ratio 0.5 (1.0-2.7) Chest X-Ray Diagnostic Results Chest X-Ray Diagnostic Results : Chest X-Ray Ordered: Yes # of Views/Limited/Complete: 1 View Indication: Other EP Interpretation: Yes Interpretation: no consolidation, no effusion, no pneumothorax, no acute cardiopulmonary disease Impression: No acute disease Electronically Signed by: Electronically signed by Wander Rosario MD Last Vital Signs Date Time Temp Pulse Resp B/P (MAP) Pulse Ox O2 Delivery O2 Flow Rate FiO2 01/07/21 14:47 Room Air 01/07/21 13:51 98.2 78 18 140/73 (95) 100 Status: improved Disposition: ADMITTED INPATIENT Condition: Serious Referrals: NOT CHOSEN IPA/,REFERRING (PCP) Wander Rosario MD Jan 07, 2021 16:17
--- NOTE | 2021-01-07 18:50 | Infectious Diseases Prog Note ---
Assessment/Plan Assessment/Plan Full consult dictated: A) 1) left leg cellulitis 2) left leg wound infection 3) s/p fall 4) hx ulcerative colitis with ileostomy, htn, proctocolectomy 5) allergies - morphine and codeine 6) sh - negative, fh-nc, mar noted, records/notes reviewed 7) d/w RN P) 1) vancomycin and zosyn 2) f/u wound culture, wound care 3) monitor clinically and labs 4) will f/u 5) d/w patient 6) thank you Subjective Allergies: Coded Allergies: CODEINE (Verified Allergy, Unknown, 01/07/21) MORPHINE (Verified Allergy, Unknown, 07/22/12) Objective Last 24 Hour Vital Signs Date Time Temp Pulse Resp B/P (MAP) Pulse Ox O2 Delivery O2 Flow Rate FiO2 01/07/21 17:56 Room Air 01/07/21 17:31 98.2 18 140/73 100 Room Air 01/07/21 14:47 Room Air 01/07/21 14:47 Room Air 01/07/21 13:51 98.2 78 18 140/73 (95) 100 Room Air Height (Feet): 5 Height (Inches): 3.00 Weight (Pounds): 127 Laboratory Tests Test 01/07/21 14:20 White Blood Count 9.7 K/UL (4.8-10.8) Red Blood Count 4.47 M/UL (4.20-5.40) Hemoglobin 11.5 G/DL (12.0-16.0) L Hematocrit 38.1 % (37.0-47.0) Mean Corpuscular Volume 85 FL (80-99) Mean Corpuscular Hemoglobin 25.7 PG (27.0-31.0) L Mean Corpuscular Hemoglobin Concent 30.1 G/DL (32.0-36.0) L Red Cell Distribution Width 16.3 % (11.6-14.8) H Platelet Count 362 K/UL (150-450) Mean Platelet Volume 6.3 FL (6.5-10.1) L Neutrophils (%) (Auto) 55.2 % (45.0-75.0) Lymphocytes (%) (Auto) 36.7 % (20.0-45.0) Monocytes (%) (Auto) 4.2 % (1.0-10.0) Eosinophils (%) (Auto) 2.8 % (0.0-3.0) Basophils (%) (Auto) 1.1 % (0.0-2.0) Urine Color Pale yellow Urine Appearance Clear Urine pH 5 (4.5-8.0) Urine Specific [place] 1.020 (1.005-1.035) Urine Protein Negative (NEGATIVE) Urine Glucose (UA) Negative (NEGATIVE) Urine Ketones Negative (NEGATIVE) Urine Blood Negative (NEGATIVE) Urine Nitrite Negative (NEGATIVE) Urine Bilirubin Negative (NEGATIVE) Urine Urobilinogen Normal MG/DL (0.0-1.0) Urine Leukocyte Esterase Negative (NEGATIVE) Sodium Level 141 MMOL/L (136-145) Potassium Level 3.7 MMOL/L (3.5-5.1) Chloride Level 103 MMOL/L (98-107) Carbon Dioxide Level 27 MMOL/L (21-32) Anion Gap 11 mmol/L (5-15) Blood Urea Nitrogen 14 mg/dL (7-18) Creatinine 1.0 MG/DL (0.55-1.30) Estimat Glomerular Filtration Rate > 60 mL/min (>60) Glucose Level 89 MG/DL (74-106) Lactic Acid Level 1.10 mmol/L (0.4-2.0) Calcium Level 9.5 MG/DL (8.5-10.1) Total Bilirubin 0.4 MG/DL (0.2-1.0) Aspartate Amino Transf (AST/SGOT) 22 U/L (15-37) Alanine Aminotransferase (ALT/SGPT) 16 U/L (12-78) Alkaline Phosphatase 110 U/L (46-116) Total Protein 10.3 G/DL (6.4-8.2) H Albumin 3.6 G/DL (3.4-5.0) Globulin 6.7 g/dL Albumin/Globulin Ratio 0.5 (1.0-2.7) L Current Medications Medications (Trade) Dose Ordered Sig/Ishmael Route PRN Reason Start Time Stop Time Status Last Admin Dose Admin Acetaminophen/ Hydrocodone Bitart ([place] 10/325) 1 tab Q6HR PRN ORAL For Pain 01/07/21 18:15 01/14/21 18:14 Cherise Ramsey MD Jan 07, 2021 18:49
[2021-01-07] MEDS: HYDROcodone/Acetamin 10/325 tab ORAL PRN ×2 (18:53→23:37)
[2021-01-07 20:00] VITALS: BP 124/73
[2021-01-07] MEDS ORDERED: Vancomycin 1.25gm Premix q24h IVPB SCH (20:00)
--- NOTE | 2021-01-07 20:33 | History & Physical ---
History of Present Illness General Reason for Hospitalization: Multiple Trauma/Fall Present Illness HPI 80-year-old female presents with wound to the left leg. States that about a week ago she tripped and fell and scraped her leg. Did not realize it was injured and saw that it started to get swollen and more painful a few days later. There is drainage. Pain is throbbing, 7 out of 10, nonradiating. No other aggravating relieving factors. Denies any other associated symptoms Allergies: Coded Allergies: CODEINE (Verified Allergy, Unknown, 01/07/21) MORPHINE (Verified Allergy, Unknown, 07/22/12) COVID-19 Screening Contact w/high risk pt: No Experienced COVID-19 symptoms?: No Medication History Scheduled Alprazolam* (Xanax*), 2 TAB PO BID, (Reported) Dorzolamide Hcl (Dorzolamide Hcl), 1 ML RIGHT EYE BID, (Reported) Latanoprost* (Xalatan*), 1 DROP BOTH EYES DAILY, (Reported) Scheduled PRN Hydrocodone Bit/Acetaminophen 5-325* ([place] 5-325*), 1 TAB PO Q6H PRN, (Reported) Patient History Healthcare decision maker N Resuscitation status Advanced Directive on File Review of Systems Review of Symptoms General ROS: no weight loss or fever Psychological ROS: no depression or mood changes, no memory loss Ophthalmic ROS: no visual changes or eye irritation ENT ROS: no nasal congestion, hearing loss, dizziness Allergy and Immunology ROS: no allergic symptoms or urticaria Hematological and Lymphatic ROS: no swollen glands, unusual bleeding or bruising Endocrine ROS: no polyuria, polydipsia, weight changes, temperature intolerance Respiratory ROS: no cough, shortness of breath, or wheezing Cardiovascular ROS: no chest pain or dyspnea on exertion Gastrointestinal ROS: denies abdominal pain, bright red blood in stool. Musculoskeletal ROS: Left leg pain Neurological ROS: no TIA or stroke symptoms Dermatological ROS: no new or changing skin lesions, rashes or pruritis Physical Exam Physical Exam General appearance: alert, cooperative, no distress, appears stated age Head: Normocephalic, without obvious abnormality, atraumatic Eyes: conjunctivae/corneas clear. PERRL, EOM's intact. Fundi benign Throat: Lips, mucosa, and tongue normal. Teeth and gums normal Neck: supple, symmetrical, trachea midline, no adenopathy, thyroid: not enlarged, symmetric, no tenderness/mass/nodules, no carotid bruit and no JVD Lungs: clear to auscultation bilaterally Heart: regular rate and rhythm, S1, S2 normal, no murmur, click, rub or gallop Abdomen: soft, non-tender. Bowel sounds normal. No masses, no organomegaly Extremities: left leg lateral ulceration Pulses: 2+ and symmetric Skin: Skin color, texture, turgor normal. No rashes or lesions Neurologic: Grossly normal Last 24 Hour Vital Signs Date Time Temp Pulse Resp B/P (MAP) Pulse Ox O2 Delivery O2 Flow Rate FiO2 01/07/21 17:56 Room Air 01/07/21 17:31 98.2 18 140/73 100 Room Air 01/07/21 14:47 Room Air 01/07/21 14:47 Room Air 01/07/21 13:51 98.2 78 18 140/73 (95) 100 Room Air Laboratory Tests Test 01/07/21 14:20 White Blood Count 9.7 K/UL (4.8-10.8) Red Blood Count 4.47 M/UL (4.20-5.40) Hemoglobin 11.5 G/DL (12.0-16.0) L Hematocrit 38.1 % (37.0-47.0) Mean Corpuscular Volume 85 FL (80-99) Mean Corpuscular Hemoglobin 25.7 PG (27.0-31.0) L Mean Corpuscular Hemoglobin Concent 30.1 G/DL (32.0-36.0) L Red Cell Distribution Width 16.3 % (11.6-14.8) H Platelet Count 362 K/UL (150-450) Mean Platelet Volume 6.3 FL (6.5-10.1) L Neutrophils (%) (Auto) 55.2 % (45.0-75.0) Lymphocytes (%) (Auto) 36.7 % (20.0-45.0) Monocytes (%) (Auto) 4.2 % (1.0-10.0) Eosinophils (%) (Auto) 2.8 % (0.0-3.0) Basophils (%) (Auto) 1.1 % (0.0-2.0) Urine Color Pale yellow Urine Appearance Clear Urine pH 5 (4.5-8.0) Urine Specific [place] 1.020 (1.005-1.035) Urine Protein Negative (NEGATIVE) Urine Glucose (UA) Negative (NEGATIVE) Urine Ketones Negative (NEGATIVE) Urine Blood Negative (NEGATIVE) Urine Nitrite Negative (NEGATIVE) Urine Bilirubin Negative (NEGATIVE) Urine Urobilinogen Normal MG/DL (0.0-1.0) Urine Leukocyte Esterase Negative (NEGATIVE) Sodium Level 141 MMOL/L (136-145) Potassium Level 3.7 MMOL/L (3.5-5.1) Chloride Level 103 MMOL/L (98-107) Carbon Dioxide Level 27 MMOL/L (21-32) Anion Gap 11 mmol/L (5-15) Blood Urea Nitrogen 14 mg/dL (7-18) Creatinine 1.0 MG/DL (0.55-1.30) Estimat Glomerular Filtration Rate > 60 mL/min (>60) Glucose Level 89 MG/DL (74-106) Lactic Acid Level 1.10 mmol/L (0.4-2.0) Calcium Level 9.5 MG/DL (8.5-10.1) Total Bilirubin 0.4 MG/DL (0.2-1.0) Aspartate Amino Transf (AST/SGOT) 22 U/L (15-37) Alanine Aminotransferase (ALT/SGPT) 16 U/L (12-78) Alkaline Phosphatase 110 U/L (46-116) Total Protein 10.3 G/DL (6.4-8.2) H Albumin 3.6 G/DL (3.4-5.0) Globulin 6.7 g/dL Albumin/Globulin Ratio 0.5 (1.0-2.7) L Height (Feet): 5 Height (Inches): 3.00 Weight (Pounds): 127 Medications Current Medications Medications (Trade) Dose Ordered Sig/Ishmael Route PRN Reason Start Time Stop Time Status Last Admin Dose Admin Acetaminophen/ Hydrocodone Bitart ([place] 10/325) 1 tab Q6HR PRN ORAL For Pain 01/07/21 18:15 01/14/21 18:14 01/07/21 18:53 Piperacillin Sod/ Tazobactam Sod 3.375 gm/Dextrose 100 ml @ 25 mls/hr EVERY 8 HOURS IVPB 01/07/21 22:00 01/12/21 21:59 Vancomycin HCl 250 ml @ 166.667 mls/hr ONCE IVPB 01/07/21 20:00 01/07/21 23:59 01/07/21 20:27 Vancomycin HCl ([facility] pharmacy to dose) 1 ea DAILY PRN MISC Per rx protocol 01/07/21 18:45 02/06/21 18:44 Assessment/Plan Diagnosis [place]: #Left leg ulceration with surrounding cellulitis s/p fall #s/p fall #HTN #HLD - admit inpatient - ID eval - continue antibiotics per ID - wound care - Surgery eval - pain control - monitr labs [facility] Hospital declaration I spent 70 minutes on this patient's case, and 35 minutes was dedicated to counseling and/or care coordination. MIPS ([employer]it-based Incentive Payment System) Applicable CPT: 39045, 26211 CHECK ALL THAT ARE MET: Measure #5 (CHF): All ages. Prescribe CARMENZA/ARB upon discharge for patients with left ventricular systolic dysfunction. If not, the reason is clearly documented in the medical chart. Measure #8 (CHF): All ages. Prescribe a beta swathi upon discharge for patients with left ventricular systolic dysfunction. If not, the reason is clearly documented in the medical chart. Measure #47 Advance care plan or surrogate decision maker documented in the medical record. Measure #130 The provider has documented, updated, or reviewed the patients current medication list and has documented it in the patients note. Measure #374 (All): Send report to referring provider. Measure #407(Sepsis due to MSSA bacteremia): Age 18+ Patient treated with a beta-lactam antibiotic (Nafcillin, Oxacillin or Cefazolin) as definitive therapy. MEDICAL COMPLEXITY High complexity medical decision making (need 2/3 categories) Problem - need 4 points Acute/new problem with new plan for workup (4 points, 1 max) Acute/new problem without additional workup (3 points, 1 max) Unstable chronic problem actively being managed (2 point each, 2 max) Stable chronic problem actively being managed (1 point each, 2 max) Self-limited/transient process (constipation, muscle ache, etc) (1 point each, 2 max) Data - need 4 points Reviewed labs/imaging studies (1 points, 2 max) Independent review of imaging (EKG, xrays, etc) (2 points, 2 max) Discussed case with consult/other MD/RN (2 points, 2 max) High Risk - qualify if have one of the following: Severe exacerbation of acute problem, acute mental status change, IV narcotics, monitoring drug levels (vancomycin, INR, tacrolimus etc) Ashok Weeks M.D. Jan 07, 2021 20:33
--- NOTE | 2021-01-07 21:59 | Consultation ---
DATE OF CONSULTATION: 01/07/2021 INFECTIOUS DISEASE CONSULTATION CONSULTING PHYSICIAN: Cherise Ramsey MD. ATTENDING PHYSICIAN: Ashok Weeks MD. REFERRING PHYSICIAN: Ashok Weeks MD. REASON FOR CONSULTATION: Left leg cellulitis and possible infected wound. CHIEF COMPLAINT: The patient's chief complaint coming into the hospital is left leg cellulitis, possible infected wound. 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 The patient also has history of hypertension and history of proctocolectomy. The patient presents to [facility] with history of a fall. The patient had a scrape over her left leg. This fall happened at least looks like one to two weeks ago prior to admission. She noted that her left leg got more swollen, red and painful and also noted that she had a wound in the left leg that was purplish in color and looks like possibly fluid-filled, but I am not clear on this. The patient presents to [facility] with left leg cellulitis with warmth and redness and also possible infected wound left leg. Infectious Disease consultation requested. I am going to place the patient on vancomycin and Zosyn empirically for the left leg cellulitis, possible infected wound. MAR was noted. Orders were noted. Notes were reviewed. Case discussed with the patient, also with the RN at the bedside. ER notes and prior records were reviewed and noted. REVIEW OF SYSTEMS: CONSTITUTIONAL: The patient has no fever, chills, or night sweats. HEAD AND NECK: No head pain or neck pain. No thrush or dysphagia. CARDIAC: No chest pain or palpitations. PULMONARY: No cough, congestion, or shortness of breath. GASTROINTESTINAL: No nausea, vomiting, or abdominal pain. She has ileostomy. GENITOURINARY: No dysuria or frequency. She has no Miller. SKIN: No rash. EXTREMITIES: She has left leg pain. NEUROLOGIC: Denies seizures. No joint pain or generalized fatigue. No focal weakness. PAST MEDICAL HISTORY: I believe per the records, she has history of Kock ileostomy with malfunctioning in the past requiring repair. She has a history of ulcerative colitis. She has a history of hypertension. She has a history of malfunctioning Kock pouch, history of multiple abdominal surgeries, history of proctocolectomy and Ivana ileostomy. No mention of Bryson ileostomy. ALLERGIES: She has allergies to codeine and morphine. No antibiotic allergies. SOCIAL HISTORY: Negative for smoking, alcohol, or drug abuse. FAMILY HISTORY: Noncontributory. Negative for tuberculosis or cancer. MEDICATIONS: Upon reviewing the MAR, she is on following medications. She was given Zosyn in the emergency room. I am going to start vancomycin and Zosyn. Vancomycin per pharmacy dose. She is on hydrocodone. Outside medications were reconciliated. She is on Xanax. She is on hydrocodone. She is on Xalatan. She is on no hypertension medications. However, per the records, she looks like she has history of hypertension. PHYSICAL EXAMINATION: VITAL SIGNS: Temperature 98.2, pulse rate 78, respiratory rate 18, blood pressure 140/73. Saturating 100% on room air. GENERAL: Alert and responsive, in no distress. No shortness of breath noted. HEAD AND NECK: Oral exam, no thrush. Eye exam, no icterus. Normocephalic. Neck is supple. No JVD. HEART: Regular. No gallop or murmur. No friction rub. ABDOMEN: Soft. Positive bowel sounds. She has ileostomy. LUNGS: Clear to auscultation bilaterally. No rhonchi or rales. No respiratory distress. No accessory muscle use. SKIN: No rash or dermatitis. MUSCULOSKELETAL: No septic arthritis. No joint pain. Legs, she has left leg redness and warmth with open wound drainage. PERIPHERAL VASCULAR: No gangrene. GENITOURINARY: No Miller. LINE SITES: Without phlebitis. NEUROLOGIC: Intact and nonfocal. Alert and oriented. LABORATORY DATA: White count 9.7, hemoglobin . Creatinine 1.0. LFTs noted. UA was negative. Wound culture is pending. IMAGING STUDIES: Chest x-ray is pending. I have also ordered x-ray of left leg. ASSESSMENT AND PLAN: 1. The patient has left leg cellulitis with warmth and redness of the left lower extremity. She is status post fall and scraping of the left leg. She also could have infected wound left leg in addition to cellulitis. At this time, we will place the patient empirically on vancomycin and Zosyn for MRSA, Streptococcus pyogenes and gram-negative coverage. Continue vancomycin and Zosyn for left leg cellulitis and infected wound. Monitor the patient clinically. Check wound culture. Monitor creatinine closely. Wound care protocol. Consider evaluation of the wound even though I do not think it is a necrotizing wound currently. Continue vancomycin and Zosyn for left leg/wound infection pending workup. Check wound culture and labs. Monitor cellulitis. 2. History of fall. 3. History of ulcerative colitis. 4. Ileostomy including Kock ileostomy. 5. History of hypertension. 6. Blood pressure treatment per primary care team. 7. History of proctocolectomy. 8. History of multiple abdominal surgeries. 9. Allergies to morphine and codeine. 10. Social history is negative. 11. Family history is noncontributory. 12. MAR is noted. 13. Case was discussed with RN. 14. Old records were reviewed. 15. Continue treatment per primary consultants. 16. Wound care protocol. Consider evaluation of left leg wound. Cherise Ramsey M.D. DR: JANICE JOB#: [id number] CC:
[2021-01-07] MEDS: Heparin 5000 units/ml inj SUBQ SCH (22:01)
[2021-01-08] VITALS: BP 130/77
[2021-01-08 04:00] VITALS: BP 114/68
[2021-01-08] MEDS: HYDROcodone/Acetamin 10/325 tab ORAL PRN ×4 (04:49→18:52)
[2021-01-08 06:15] LABS: BASOPHILS % (AUTO) 0.7 % (0.0-2.0); EOSINOPHILS % (AUTO) 3.4 % (0.0-3.0); HEMATOCRIT 38.4 % (37.0-47.0); HEMOGLOBIN 11.5 G/DL (12.0-16.0); MEAN CORPUSCULAR VOLUME 86 FL (80-99); MONOCYTES % (AUTO) 6.4 % (1.0-10.0); NEUTROPHILS % (AUTO) 42.5 % (45.0-75.0); PLATELET COUNT 284 K/UL (150-450); RED BLOOD COUNT 4.45 M/UL (4.20-5.40); RED CELL DISTRIBUTION WIDTH 15.2 % (11.6-14.8); WHITE BLOOD COUNT 7.9 K/UL (4.8-10.8)
[2021-01-08 06:45] LABS: ALANINE AMINOTRANSFERASE 16 U/L (12-78); ALBUMIN 3.1 G/DL (3.4-5.0); ALBUMIN/GLOBULIN RATIO 0.6 (1.0-2.7); ALKALINE PHOSPHATASE 95 U/L (46-116); ANION GAP 13 mmol/L (5-15); ASPARTATE AMINO TRANSFERASE 24 U/L (15-37); BILIRUBIN,TOTAL 0.6 MG/DL (0.2-1.0); BLOOD UREA NITROGEN 12 mg/dL (7-18); CALCIUM 9.2 MG/DL (8.5-10.1); CARBON DIOXIDE 23 MMOL/L (21-32); CHLORIDE 108 MMOL/L (98-107); CREATININE 0.9 MG/DL (0.55-1.30); PHOSPHORUS 4.4 MG/DL (2.5-4.9); POTASSIUM 4.6 MMOL/L (3.5-5.1); SODIUM 144 MMOL/L (136-145)
[2021-01-08 08:00] VITALS: BP 110/64
[2021-01-08] MEDS: Heparin 5000 units/ml inj SUBQ SCH ×2 (09:46→20:59)
--- NOTE | 2021-01-08 11:27 | Internal Med Progress Note ---
Subjective Physician Name Ashok Weeks Attending Physician Ashok Weeks M.D. Current Medications Medications (Trade) Dose Ordered Sig/Ishmael Route PRN Reason Start Time Stop Time Status Last Admin Dose Admin Acetaminophen/ Hydrocodone Bitart (Friona ) 1 tab Q6HR PRN ORAL For Pain 01/07/21 18:15 01/14/21 18:14 01/08/21 09:43 Heparin Sodium (Porcine) (Heparin 5000 units/ml) 5,000 units EVERY 12 HOURS SUBQ 01/07/21 21:00 02/21/21 20:59 01/08/21 09:46 Piperacillin Sod/ Tazobactam Sod 3.375 gm/Dextrose 100 ml @ 25 mls/hr EVERY 8 HOURS IVPB 01/07/21 22:00 01/12/21 21:59 01/08/21 06:21 Vancomycin HCl ([facility] pharmacy to dose) 1 ea DAILY PRN MISC Per rx protocol 01/07/21 18:45 02/06/21 18:44 Vancomycin HCl 750 mg/Sodium Chloride 275 ml @ 183.333 mls/hr Q24H IVPB 01/08/21 20:00 01/13/21 19:59 Allergies: Coded Allergies: CODEINE (Verified Allergy, Unknown, 01/07/21) MORPHINE (Verified Allergy, Unknown, 07/22/12) ROS Limited/Unobtainable: No HEENT: Denies: no symptoms, eye pain, blurred vision, tearing, double vision, ear pain, ear discharge, nose pain, nose congestion, throat pain, throat swelling, mouth pain, mouth swelling, other Cardiovascular: Denies: no symptoms, chest pain, edema, irregular heart rate, lightheadedness, palpitations, syncope, other Respiratory: Denies: no symptoms, cough, orthopnea, shortness of breath, SOB with excertion, SOB at rest, sputum, stridor, wheezing, other Gastrointestinal/Abdominal: Denies: no symptoms, abdomen distended, abdominal pain, black stools, tarry stools, blood in stool, constipated, diarrhea, difficulty swallowing, nausea, poor appetite, poor fluid intake, rectal bleeding, vomiting, other Genitourinary: Denies: no symptoms, burning, discharge, frequency, flank pain, hematuria, incontinence, pain, urgency, other Neurologic/Psychiatric: Denies: no symptoms, anxiety, depressed, emotional problems, headache, numbness, paresthesia, pre-existing deficit, seizure, tingling, tremors, weakness, other Subjective pain controlled feeling weak Objective Last Vital Signs Date Time Temp Pulse Resp B/P (MAP) Pulse Ox O2 Delivery O2 Flow Rate FiO2 01/08/21 10:13 97.4 01/08/21 04:00 77 18 114/68 (83) 01/07/21 21:00 Room Air 01/07/21 17:31 100 General Appearance: no apparent distress, alert EENT: PERRL/EOMI, normal ENT inspection Neck: non-tender, normal alignment Cardiovascular: normal peripheral pulses, normal rate, regular rhythm Respiratory/Chest: chest wall non-tender, lungs clear Abdomen: normal bowel sounds, non tender Extremities: other - ulceration on the Edema: trace edema Laboratory Tests Test 01/07/21 14:20 01/08/21 05:18 White Blood Count 9.7 K/UL (4.8-10.8) 7.9 K/UL (4.8-10.8) Red Blood Count 4.47 M/UL (4.20-5.40) 4.45 M/UL (4.20-5.40) Hemoglobin 11.5 G/DL (12.0-16.0) L 11.5 G/DL (12.0-16.0) L Hematocrit 38.1 % (37.0-47.0) 38.4 % (37.0-47.0) Mean Corpuscular Volume 85 FL (80-99) 86 FL (80-99) Mean Corpuscular Hemoglobin 25.7 PG (27.0-31.0) L 25.8 PG (27.0-31.0) L Mean Corpuscular Hemoglobin Concent 30.1 G/DL (32.0-36.0) L 30.0 G/DL (32.0-36.0) L Red Cell Distribution Width 16.3 % (11.6-14.8) H 15.2 % (11.6-14.8) H Platelet Count 362 K/UL (150-450) 284 K/UL (150-450) Mean Platelet Volume 6.3 FL (6.5-10.1) L 6.5 FL (6.5-10.1) Neutrophils (%) (Auto) 55.2 % (45.0-75.0) 42.5 % (45.0-75.0) L Lymphocytes (%) (Auto) 36.7 % (20.0-45.0) 47.0 % (20.0-45.0) H Monocytes (%) (Auto) 4.2 % (1.0-10.0) 6.4 % (1.0-10.0) Eosinophils (%) (Auto) 2.8 % (0.0-3.0) 3.4 % (0.0-3.0) H Basophils (%) (Auto) 1.1 % (0.0-2.0) 0.7 % (0.0-2.0) Urine Color Pale yellow Urine Appearance Clear Urine pH 5 (4.5-8.0) Urine Specific [place] 1.020 (1.005-1.035) Urine Protein Negative (NEGATIVE) Urine Glucose (UA) Negative (NEGATIVE) Urine Ketones Negative (NEGATIVE) Urine Blood Negative (NEGATIVE) Urine Nitrite Negative (NEGATIVE) Urine Bilirubin Negative (NEGATIVE) Urine Urobilinogen Normal MG/DL (0.0-1.0) Urine Leukocyte Esterase Negative (NEGATIVE) Sodium Level 141 MMOL/L (136-145) 144 MMOL/L (136-145) Potassium Level 3.7 MMOL/L (3.5-5.1) 4.6 MMOL/L (3.5-5.1) Chloride Level 103 MMOL/L (98-107) 108 MMOL/L (98-107) H Carbon Dioxide Level 27 MMOL/L (21-32) 23 MMOL/L (21-32) Anion Gap 11 mmol/L (5-15) 13 mmol/L (5-15) Blood Urea Nitrogen 14 mg/dL (7-18) 12 mg/dL (7-18) Creatinine 1.0 MG/DL (0.55-1.30) 0.9 MG/DL (0.55-1.30) Estimat Glomerular Filtration Rate > 60 mL/min (>60) > 60 mL/min (>60) Glucose Level 89 MG/DL (74-106) 63 MG/DL (74-106) L Lactic Acid Level 1.10 mmol/L (0.4-2.0) Calcium Level 9.5 MG/DL (8.5-10.1) 9.2 MG/DL (8.5-10.1) Total Bilirubin 0.4 MG/DL (0.2-1.0) 0.6 MG/DL (0.2-1.0) Aspartate Amino Transf (AST/SGOT) 22 U/L (15-37) 24 U/L (15-37) Alanine Aminotransferase (ALT/SGPT) 16 U/L (12-78) 16 U/L (12-78) Alkaline Phosphatase 110 U/L (46-116) 95 U/L (46-116) Total Protein 10.3 G/DL (6.4-8.2) H 8.4 G/DL (6.4-8.2) H Albumin 3.6 G/DL (3.4-5.0) 3.1 G/DL (3.4-5.0) L Globulin 6.7 g/dL 5.3 g/dL Albumin/Globulin Ratio 0.5 (1.0-2.7) L 0.6 (1.0-2.7) L Phosphorus Level 4.4 MG/DL (2.5-4.9) Magnesium Level 2.3 MG/DL (1.8-2.4) Assessment/Plan Assessment/Plan #Left leg ulceration with surrounding cellulitis s/p fall #s/p fall #HTN #HLD - admit inpatient - ID eval - continue antibiotics per ID - wound care - Surgery eval - pain control - monitr labs Ashok Weeks M.D. Jan 08, 2021 11:27
[2021-01-08 12:00] VITALS: BP 109/71
--- NOTE | 2021-01-08 12:08 | Diagnostic Imaging Report ---
Indication:Leg pain and swelling Technique: Grayscale and duplex Doppler imaging of the veins in both lower extremities performed in real time utilizing compression and augmentation. Comparison: None Findings: Duplex Doppler interrogation of the veins in both lower extremity is performed from the common femoral vein to the popliteal vein. Normal venous compressibility demonstrated throughout. No thrombus identified. Waveform analysis shows good respiratory phasicity and augmentation. IMPRESSION: No evidence of deep venous thrombosis involving the visualized veins of the bilateral lower extremities.
--- NOTE | 2021-01-08 12:09 | Diagnostic Imaging Report ---
Indication: Leg pain Technique: 3 views of the left leg (tibia/fibula) Comparison: None Findings: Bony mineralization within normal limits. No acute fracture is identified. There are degenerative changes partially visualized in the left knee joint. Partially visualized ankle joint appears maintained. No radiopaque foreign body. Impression: No acute fracture or dislocation.
--- NOTE | 2021-01-08 12:17 | Diagnostic Imaging Report ---
Indication: Shortness of breath Technique: XRAY Chest 1v Comparison: 04/23/2017 Findings: Patient is rotated to the right significantly. Within these limitations: Heart size and mediastinal contours within normal limits and grossly stable compared to the prior exam. No definite focal airspace consolidation. No pleural effusion or pneumothorax. There is scoliosis and degenerative changes of the spine. No acute osseous abnormality. IMPRESSION: Limited exam due to patient rotation. No definite radiographic evidence of acute cardiopulmonary disease.
[2021-01-08] MEDS ORDERED: LIDODERM700 M1 TOPIC (13:02)
[2021-01-08] MEDS ORDERED: HYDROCODON-ACE1 EA13 ORAL (13:02)
[2021-01-08] MEDS ORDERED: VITAMIN D325 MC1 PO (13:02)
[2021-01-08] MEDS ORDERED: LD2JL30 TOPIC (13:02)
[2021-01-08] MEDS ORDERED: VITAMIN C500 M1 ORAL (13:02)
[2021-01-08] MEDS ORDERED: GABAPENTIN400 MG ORAL (13:02)
--- NOTE | 2021-01-08 14:21 | Consultation ---
History of Present Illness General Date patient seen: Jan 08, 2021 Reason for Hospitalization: Multiple Trauma/Fall Present Illness HPI 80-year-old female presents with wound to the left leg. States that about a week ago she tripped and fell and scraped her leg. Did not realize it was injured and saw that it started to get swollen and more painful a few days later. There is drainage. Pain is throbbing, 7 out of 10, nonradiating. No other aggravating relieving factors. Denies any other associated symptoms. Open wound with bleeding cellulitis identified surgery called to evaluate assist with care patient seen, patient evaluated, chart reviewed. Currently feeling better since admission dressings applied. Labs noted imaging reviewed Allergies: Coded Allergies: CODEINE (Verified Allergy, Unknown, 01/07/21) MORPHINE (Verified Allergy, Unknown, 07/22/12) COVID-19 Screening Contact w/high risk pt: No Experienced COVID-19 symptoms?: No Medication History Scheduled Alprazolam* (Xanax*), 1 TAB PO BID, (Reported) Ascorbic Acid* (Vitamin C*), 500 MG ORAL DAILY, (Reported) Cholecalciferol (Vitamin D3) (Vitamin D3*), 25 MCG PO DAILY, (Reported) Dorzolamide Hcl (Dorzolamide Hcl), 1 ML BOTH EYES BID, (Reported) Gabapentin* (Gabapentin*), 300 MG ORAL QHS, (Reported) Hydrocodone Bit/Acetaminophen 10-325* (Hydrocodon-Acetaminophn 10-325*), 1 TAB ORAL QID, (Reported) Latanoprost* (Xalatan*), 1 DROP BOTH EYES DAILY, (Reported) Lidocaine HCL 2% Jelly* (Lidocaine Jelly 2%*), 5 ML TOPIC DAILY, (Reported) Scheduled PRN Lidocaine Patch* (Lidoderm Patch*), 1 PATCH TOPIC DAILY PRN for For Pain, (Reported) Patient History History Provided By: Patient, Medical Record, PMD Healthcare decision maker N Resuscitation status Advanced Directive on File Past Medical/Surgical History Past Medical/Surgical History: (1) Dizziness (2) Grief reaction (3) PTSD (post-traumatic stress disorder) (4) malfunction of pouch (5) Chronic pain (6) Cellulitis of left lower extremity Review of Systems Review of Symptoms General ROS: no weight loss or fever Psychological ROS: no depression or mood changes, no memory loss Ophthalmic ROS: no visual changes or eye irritation ENT ROS: no nasal congestion, hearing loss, dizziness Allergy and Immunology ROS: no allergic symptoms or urticaria Hematological and Lymphatic ROS: no swollen glands, unusual bleeding or bruising Endocrine ROS: no polyuria, polydipsia, weight changes, temperature intolerance Respiratory ROS: no cough, shortness of breath, or wheezing Cardiovascular ROS: no chest pain or dyspnea on exertion Gastrointestinal ROS: denies abdominal pain, bright red blood in stool. Musculoskeletal ROS: no myalgias or arthralgias Neurological ROS: no TIA or stroke symptoms Dermatological ROS: no new or changing skin lesions, rashes or pruritis Physical Exam Physical Exam General appearance: alert, cooperative, no distress, appears stated age Head: Normocephalic, without obvious abnormality, atraumatic Eyes: conjunctivae/corneas clear. PERRL, EOM's intact. Fundi benign Throat: Lips, mucosa, and tongue normal. Teeth and gums normal Neck: supple, symmetrical, trachea midline, no adenopathy, thyroid: not enlarged, symmetric, no tenderness/mass/nodules, no carotid bruit and no JVD Lungs: clear to auscultation bilaterally Heart: regular rate and rhythm, S1, S2 normal, no murmur, click, rub or gallop Abdomen: soft, non-tender. Bowel sounds normal. No masses, no organomegaly Extremities: extremities normal, small traumatic, no cyanosis or edema Pulses: 2+ and symmetric Skin: Skin color, texture, turgor normal. No rashes or lesions Neurologic: Grossly normal Last 24 Hour Vital Signs Date Time Temp Pulse Resp B/P (MAP) Pulse Ox O2 Delivery O2 Flow Rate FiO2 01/08/21 10:13 97.4 01/08/21 09:00 Room Air 01/08/21 08:00 98.2 71 18 110/64 (79) 01/08/21 04:00 97.4 77 18 114/68 (83) 01/08/21 00:00 97.3 73 18 130/77 (94) 01/07/21 21:00 Room Air 01/07/21 20:00 97.3 73 18 124/73 (90) 01/07/21 17:56 Room Air 01/07/21 17:31 98.2 18 140/73 100 Room Air 01/07/21 14:47 Room Air 01/07/21 14:47 Room Air Laboratory Tests Test 01/07/21 14:20 01/08/21 05:18 White Blood Count 9.7 K/UL (4.8-10.8) 7.9 K/UL (4.8-10.8) Red Blood Count 4.47 M/UL (4.20-5.40) 4.45 M/UL (4.20-5.40) Hemoglobin 11.5 G/DL (12.0-16.0) L 11.5 G/DL (12.0-16.0) L Hematocrit 38.1 % (37.0-47.0) 38.4 % (37.0-47.0) Mean Corpuscular Volume 85 FL (80-99) 86 FL (80-99) Mean Corpuscular Hemoglobin 25.7 PG (27.0-31.0) L 25.8 PG (27.0-31.0) L Mean Corpuscular Hemoglobin Concent 30.1 G/DL (32.0-36.0) L 30.0 G/DL (32.0-36.0) L Red Cell Distribution Width 16.3 % (11.6-14.8) H 15.2 % (11.6-14.8) H Platelet Count 362 K/UL (150-450) 284 K/UL (150-450) Mean Platelet Volume 6.3 FL (6.5-10.1) L 6.5 FL (6.5-10.1) Neutrophils (%) (Auto) 55.2 % (45.0-75.0) 42.5 % (45.0-75.0) L Lymphocytes (%) (Auto) 36.7 % (20.0-45.0) 47.0 % (20.0-45.0) H Monocytes (%) (Auto) 4.2 % (1.0-10.0) 6.4 % (1.0-10.0) Eosinophils (%) (Auto) 2.8 % (0.0-3.0) 3.4 % (0.0-3.0) H Basophils (%) (Auto) 1.1 % (0.0-2.0) 0.7 % (0.0-2.0) Urine Color Pale yellow Urine Appearance Clear Urine pH 5 (4.5-8.0) Urine Specific [place] 1.020 (1.005-1.035) Urine Protein Negative (NEGATIVE) Urine Glucose (UA) Negative (NEGATIVE) Urine Ketones Negative (NEGATIVE) Urine Blood Negative (NEGATIVE) Urine Nitrite Negative (NEGATIVE) Urine Bilirubin Negative (NEGATIVE) Urine Urobilinogen Normal MG/DL (0.0-1.0) Urine Leukocyte Esterase Negative (NEGATIVE) Sodium Level 141 MMOL/L (136-145) 144 MMOL/L (136-145) Potassium Level 3.7 MMOL/L (3.5-5.1) 4.6 MMOL/L (3.5-5.1) Chloride Level 103 MMOL/L (98-107) 108 MMOL/L (98-107) H Carbon Dioxide Level 27 MMOL/L (21-32) 23 MMOL/L (21-32) Anion Gap 11 mmol/L (5-15) 13 mmol/L (5-15) Blood Urea Nitrogen 14 mg/dL (7-18) 12 mg/dL (7-18) Creatinine 1.0 MG/DL (0.55-1.30) 0.9 MG/DL (0.55-1.30) Estimat Glomerular Filtration Rate > 60 mL/min (>60) > 60 mL/min (>60) Glucose Level 89 MG/DL (74-106) 63 MG/DL (74-106) L Lactic Acid Level 1.10 mmol/L (0.4-2.0) Calcium Level 9.5 MG/DL (8.5-10.1) 9.2 MG/DL (8.5-10.1) Total Bilirubin 0.4 MG/DL (0.2-1.0) 0.6 MG/DL (0.2-1.0) Aspartate Amino Transf (AST/SGOT) 22 U/L (15-37) 24 U/L (15-37) Alanine Aminotransferase (ALT/SGPT) 16 U/L (12-78) 16 U/L (12-78) Alkaline Phosphatase 110 U/L (46-116) 95 U/L (46-116) Total Protein 10.3 G/DL (6.4-8.2) H 8.4 G/DL (6.4-8.2) H Albumin 3.6 G/DL (3.4-5.0) 3.1 G/DL (3.4-5.0) L Globulin 6.7 g/dL 5.3 g/dL Albumin/Globulin Ratio 0.5 (1.0-2.7) L 0.6 (1.0-2.7) L Phosphorus Level 4.4 MG/DL (2.5-4.9) Magnesium Level 2.3 MG/DL (1.8-2.4) Height (Feet): 5 Height (Inches): 3.00 Weight (Pounds): 127 Medications Current Medications Medications (Trade) Dose Ordered Sig/Ishmael Route PRN Reason Start Time Stop Time Status Last Admin Dose Admin Acetaminophen/ Hydrocodone Bitart (Alma ) 1 tab Q6HR PRN ORAL For Pain 01/07/21 18:15 01/14/21 18:14 01/08/21 09:43 Heparin Sodium (Porcine) (Heparin 5000 units/ml) 5,000 units EVERY 12 HOURS SUBQ 01/07/21 21:00 02/21/21 20:59 01/08/21 09:46 Piperacillin Sod/ Tazobactam Sod 3.375 gm/Dextrose 100 ml @ 25 mls/hr EVERY 8 HOURS IVPB 01/07/21 22:00 01/12/21 21:59 01/08/21 06:21 [facility] 1 ea DAILY PRN MISC Per rx protocol 01/07/21 18:45 02/06/21 18:44 Vancomycin HCl 750 mg/Sodium Chloride 275 ml @ 183.333 mls/hr Q24H IVPB 01/08/21 20:00 01/13/21 19:59 Assessment/Plan Problem List: (1) Dizziness ICD Codes: R42 - Dizziness and giddiness SNOMED: 750498322, 504013949 (2) Grief reaction ICD Codes: F43.20 - Adjustment disorder, unspecified SNOMED: 96807063, 863509143 (3) Chronic pain ICD Codes: G89.29 - Other chronic pain SNOMED: 18143925, 023281741 (4) PTSD (post-traumatic stress disorder) ICD Codes: F43.10 - Post-traumatic stress disorder, unspecified SNOMED: 92800268, 226859660 (5) Cellulitis of left lower extremity Assessment & Plan: 72-year-old female recent trauma identified to have cellulit is of left lower extremity mid calf posterior noted mild oozing small less than 1 cm laceration no purulent drainage no abscess. Wound washed dressings applied. identified abrasion to the skin blood blister keep leg elevated while in bed antibiotics per infectious disease okay for diet we will continue with local wound care and monitor for improvement thank you light participation's care Bony mineralization within normal limits. No acute fracture is identified. There are degenerative changes partially visualized in the left knee joint. Partially visualized ankle joint appears maintained. No radiopaque foreign body. Impression: No acute fracture or dislocation. ICD Codes: L03.116 - Cellulitis of left lower limb SNOMED: 910828954 (6) malfunction of pouch Natan Goins Jan 08, 2021 14:21
[2021-01-08 16:00] VITALS: BP 129/76
[2021-01-08 20:00] VITALS: BP 135/70
[2021-01-08] MEDS: Vancomycin 750 MG in NS 275 ML IVPB SCH (20:58)
[2021-01-08] MEDS: ALPRAZolam 0.5mg tab ORAL PRN (20:58)
[2021-01-09] VITALS: BP 125/74
[2021-01-09] MEDS: HYDROcodone/Acetamin 10/325 tab ORAL PRN ×4 (01:11→21:51)
[2021-01-09 04:00] VITALS: BP 112/66
[2021-01-09 06:24] LABS: BASOPHILS % (AUTO) 0.8 % (0.0-2.0); EOSINOPHILS % (AUTO) 3.8 % (0.0-3.0); HEMATOCRIT 33.1 % (37.0-47.0); HEMOGLOBIN 10.1 G/DL (12.0-16.0); LYMPHOCYTES % (AUTO) 43.4 % (20.0-45.0); MEAN CORPUSCULAR VOLUME 85 FL (80-99); MONOCYTES % (AUTO) 5.7 % (1.0-10.0); NEUTROPHILS % (AUTO) 46.3 % (45.0-75.0); PLATELET COUNT 309 K/UL (150-450); RED BLOOD COUNT 3.92 M/UL (4.20-5.40); RED CELL DISTRIBUTION WIDTH 15.1 % (11.6-14.8); WHITE BLOOD COUNT 7.8 K/UL (4.8-10.8)
[2021-01-09 06:55] LABS: ALBUMIN 2.7 G/DL (3.4-5.0); ALBUMIN/GLOBULIN RATIO 0.5 (1.0-2.7); BILIRUBIN,TOTAL 0.3 MG/DL (0.2-1.0); CALCIUM 9.2 MG/DL (8.5-10.1); CREATININE 1.1 MG/DL (0.55-1.30); POTASSIUM 3.7 MMOL/L (3.5-5.1)
[2021-01-09 08:00] VITALS: BP 124/63
[2021-01-09] MEDS: Heparin 5000 units/ml inj SUBQ SCH ×2 (09:08→21:00)
[2021-01-09 12:00] VITALS: BP 149/78
--- NOTE | 2021-01-09 12:24 | Surgery Progress Note ---
Surgery Progress Note Subjective Additional Comments patient seen and examined at bedside no acute events states feels well dressings changed, hematoma removed from wound bed Objective Last 24 Hour Vital Signs Date Time Temp Pulse Resp B/P (MAP) Pulse Ox O2 Delivery O2 Flow Rate FiO2 01/09/21 09:00 Room Air 01/09/21 08:00 98.6 78 18 124/63 (83) 99 01/09/21 04:00 98.2 72 18 112/66 (81) 01/09/21 00:00 97.9 74 20 125/74 (91) 01/08/21 21:00 Room Air 01/08/21 20:00 97.9 73 18 135/70 (91) 01/08/21 19:22 97.9 01/08/21 16:00 97.9 79 17 129/76 (93) 01/08/21 15:32 97.7 I&O Intake and Output 01/08/21 01/09/21 19:00 07:00 Intake Total 795 ml Output Total 300 ml Balance 795 ml -300 ml Intake Oral 720 ml IV Total 75 ml Output Urine Total 300 ml # Voids 4 1 Dressing: saturated Wound: clean Cardiovascular: RSR Respiratory: clear Abdomen: soft, flat, non-tender, present bowel sounds, non-distended Extremities: no edema, no tenderness, no cyanosis, pulses, other Laboratory Tests Test 01/09/21 06:05 White Blood Count 7.8 K/UL (4.8-10.8) Red Blood Count 3.92 M/UL (4.20-5.40) L Hemoglobin 10.1 G/DL (12.0-16.0) L Hematocrit 33.1 % (37.0-47.0) L Mean Corpuscular Volume 85 FL (80-99) Mean Corpuscular Hemoglobin 25.7 PG (27.0-31.0) L Mean Corpuscular Hemoglobin Concent 30.4 G/DL (32.0-36.0) L Red Cell Distribution Width 15.1 % (11.6-14.8) H Platelet Count 309 K/UL (150-450) Mean Platelet Volume 6.5 FL (6.5-10.1) Neutrophils (%) (Auto) 46.3 % (45.0-75.0) Lymphocytes (%) (Auto) 43.4 % (20.0-45.0) Monocytes (%) (Auto) 5.7 % (1.0-10.0) Eosinophils (%) (Auto) 3.8 % (0.0-3.0) H Basophils (%) (Auto) 0.8 % (0.0-2.0) Erythrocyte Sedimentation Rate 95 MM/HR (0-30) H Sodium Level 141 MMOL/L (136-145) Potassium Level 3.7 MMOL/L (3.5-5.1) Chloride Level 107 MMOL/L (98-107) Carbon Dioxide Level 27 MMOL/L (21-32) Anion Gap 7 mmol/L (5-15) Blood Urea Nitrogen 9 mg/dL (7-18) Creatinine 1.1 MG/DL (0.55-1.30) Estimat Glomerular Filtration Rate 58.1 mL/min (>60) Glucose Level 84 MG/DL (74-106) Calcium Level 9.2 MG/DL (8.5-10.1) Total Bilirubin 0.3 MG/DL (0.2-1.0) Aspartate Amino Transf (AST/SGOT) 18 U/L (15-37) Alanine Aminotransferase (ALT/SGPT) 15 U/L (12-78) Alkaline Phosphatase 80 U/L (46-116) C-Reactive Protein, Quantitative 5.3 mg/dL (0.00-0.90) H Total Protein 8.0 G/DL (6.4-8.2) Albumin 2.7 G/DL (3.4-5.0) L Globulin 5.3 g/dL Albumin/Globulin Ratio 0.5 (1.0-2.7) L Plan Problems: (1) Dizziness (2) Grief reaction (3) Chronic pain (4) PTSD (post-traumatic stress disorder) (5) Cellulitis of left lower extremity Assessment & Plan: 72-year-old female recent trauma identified to have cellulitis of left lower extremity mid calf posterior noted mild oozing small less than 1 cm laceration no purulent drainage no abscess. Wound washed dressings applied. identified abrasion to the skin blood blister keep leg elevated while in bed antibiotics per infectious disease okay for diet we will continue with local wound care and monitor for improvement thank you light participation's care Bony mineralization within normal limits. No acute fracture is identified. There are degenerative changes partially visualized in the left knee joint. Partially visualized ankle joint appears maintained. No radiopaque foreign body. Impression: No acute fracture or dislocation. US noted. no dvt wound noted today with hematoma that was evacuated. 3cm x 3cm area open with soft tissue exposed. no pus, mild oozing blood wound washed. new dressings applied betadine swab, therahoney and wrap (6) malfunction of pouch Natan Goins Jan 09, 2021 12:24
[2021-01-09] MEDS: ALPRAZolam 0.5mg tab ORAL PRN (13:49)
[2021-01-09 16:00] VITALS: BP 139/82
--- NOTE | 2021-01-09 18:39 | Infectious Diseases Prog Note ---
Assessment/Plan Assessment/Plan ASSESSMENT AND PLAN: 1. left leg cellulitis, gram + bacteremia, left leg wound infection - cefepime and vancomycin - f/u on cultures - monitor labs - check TTE 2. History of fall. 3. History of ulcerative colitis. 4. Ileostomy including Kock ileostomy. 5. History of hypertension. 6. Blood pressure treatment per primary care team. 7. History of proctocolectomy. 8. History of multiple abdominal surgeries. 9. Allergies to morphine and codeine. 10. Social history is negative. 11. Family history is noncontributory. 12. MAR is noted. 13. Case was discussed with RN. 14. Old records were reviewed. 15. Continue treatment per primary consultants. 16. Wound care protocol. Consider evaluation of left leg wound. Subjective Constitutional: Reports: fatigue; Denies: fever HEENT: Denies: congestion Respiratory: Denies: shortness of breath Cardiovascular: Denies: chest pain Gastrointestinal/Abdominal: Denies: nausea, vomiting, diarrhea Neurologic: Denies: headache Psychiatric: Denies: depression Skin: Denies: rash Hematologic: Denies: bleeding Musculoskeletal: Denies: pain Allergies: Coded Allergies: CODEINE (Verified Allergy, Unknown, 01/07/21) MORPHINE (Verified Allergy, Unknown, 07/22/12) Objective Last 24 Hour Vital Signs Date Time Temp Pulse Resp B/P (MAP) Pulse Ox O2 Delivery O2 Flow Rate FiO2 01/09/21 12:00 98.5 73 18 149/78 (101) 99 01/09/21 09:00 Room Air 01/09/21 08:00 98.6 78 18 124/63 (83) 99 01/09/21 04:00 98.2 72 18 112/66 (81) 01/09/21 00:00 97.9 74 20 125/74 (91) 01/08/21 21:00 Room Air 01/08/21 20:00 97.9 73 18 135/70 (91) 01/08/21 19:22 97.9 Height (Feet): 5 Height (Inches): 3.00 Weight (Pounds): 127 General Appearance: no acute distress HEENT: normocephalic, atraumatic Respiratory/Chest: lungs clear, normal breath sounds, no respiratory distress, no accessory muscle use Cardiovascular: normal rate, regular rhythm, regularly irregular Abdomen: soft, non tender, no organomegaly, non distended Genitourinary: other - no munson Extremities: no cyanosis, other - left leg wound stabe, less pain and swelling, Skin: no rash 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 No acute fracture is identified. There are degenerative changes partially visualized in the left knee joint. Partially visualized ankle joint appears maintained. No radiopaque foreign body. Impression: No acute fracture or dislocation. Chest - x-ray - Procedure: XRAY Chest 1v Indication: Shortness of breath Technique: XRAY Chest 1v Comparison: 04/23/2017 Findings: Patient is rotated to the right significantly. Within these limitations: Heart size and mediastinal contours within normal limits and grossly stable compared to the prior exam. No definite focal airspace consolidation. No pleural effusion or pneumothorax. There is scoliosis and degenerative changes of the spine. No acute osseous abnormality. IMPRESSION: Limited exam due to patient rotation. No definite radiographic evidence of acute cardiopulmonary disease. Microbiology Date/Time Source Procedure Growth Status 01/07/21 14:39 Leg Left Gram Stain - Final Resulted 01/07/21 14:39 Wound Culture - Preliminary Usual Skin Soco Resulted 01/07/21 14:25 Blood Blood Culture - Preliminary Resulted 01/07/21 14:20 Blood Blood Culture - Preliminary Resulted Laboratory Tests Test 01/09/21 06:05 White Blood Count 7.8 K/UL (4.8-10.8) Red Blood Count 3.92 M/UL (4.20-5.40) L Hemoglobin 10.1 G/DL (12.0-16.0) L Hematocrit 33.1 % (37.0-47.0) L Mean Corpuscular Volume 85 FL (80-99) Mean Corpuscular Hemoglobin 25.7 PG (27.0-31.0) L Mean Corpuscular Hemoglobin Concent 30.4 G/DL (32.0-36.0) L Red Cell Distribution Width 15.1 % (11.6-14.8) H Platelet Count 309 K/UL (150-450) Mean Platelet Volume 6.5 FL (6.5-10.1) Neutrophils (%) (Auto) 46.3 % (45.0-75.0) Lymphocytes (%) (Auto) 43.4 % (20.0-45.0) Monocytes (%) (Auto) 5.7 % (1.0-10.0) Eosinophils (%) (Auto) 3.8 % (0.0-3.0) H Basophils (%) (Auto) 0.8 % (0.0-2.0) Erythrocyte Sedimentation Rate 95 MM/HR (0-30) H Sodium Level 141 MMOL/L (136-145) Potassium Level 3.7 MMOL/L (3.5-5.1) Chloride Level 107 MMOL/L (98-107) Carbon Dioxide Level 27 MMOL/L (21-32) Anion Gap 7 mmol/L (5-15) Blood Urea Nitrogen 9 mg/dL (7-18) Creatinine 1.1 MG/DL (0.55-1.30) Estimat Glomerular Filtration Rate 58.1 mL/min (>60) Glucose Level 84 MG/DL (74-106) Calcium Level 9.2 MG/DL (8.5-10.1) Total Bilirubin 0.3 MG/DL (0.2-1.0) Aspartate Amino Transf (AST/SGOT) 18 U/L (15-37) Alanine Aminotransferase (ALT/SGPT) 15 U/L (12-78) Alkaline Phosphatase 80 U/L (46-116) C-Reactive Protein, Quantitative 5.3 mg/dL (0.00-0.90) H Total Protein 8.0 G/DL (6.4-8.2) Albumin 2.7 G/DL (3.4-5.0) L Globulin 5.3 g/dL Albumin/Globulin Ratio 0.5 (1.0-2.7) L Current Medications Medications (Trade) Dose Ordered Sig/Ishmael Route PRN Reason Start Time Stop Time Status Last Admin Dose Admin Acetaminophen/ Hydrocodone Bitart ([place] 10/325) 1 tab Q6HR PRN ORAL For Pain 01/07/21 18:15 01/14/21 18:14 01/09/21 15:36 Alprazolam (Xanax) 0.5 mg DAILY PRN ORAL For Anxiety 01/08/21 17:30 01/15/21 17:29 01/09/21 13:49 Heparin Sodium (Porcine) (Heparin 5000 units/ml) 5,000 units EVERY 12 HOURS SUBQ 01/07/21 21:00 02/21/21 20:59 01/09/21 09:08 Piperacillin Sod/ Tazobactam Sod 3.375 gm/Dextrose 100 ml @ 25 mls/hr EVERY 8 HOURS IVPB 01/07/21 22:00 01/12/21 21:59 01/09/21 15:03 Vancomycin HCl ([facility] pharmacy to dose) 1 ea DAILY PRN MISC Per rx protocol 01/07/21 18:45 02/06/21 18:44 Vancomycin HCl 750 mg/Sodium Chloride 275 ml @ 183.333 mls/hr Q24H IVPB 01/08/21 20:00 01/13/21 19:59 01/08/21 20:58 Cherise Ramsey MD Jan 09, 2021 18:39
--- NOTE | 2021-01-09 19:06 | Internal Med Progress Note ---
Subjective Physician Name Ashok Weeks Attending Physician Ashok Weeks M.D. Current Medications Medications (Trade) Dose Ordered Sig/Ishmael Route PRN Reason Start Time Stop Time Status Last Admin Dose Admin Acetaminophen/ Hydrocodone Bitart ([place] ) 1 tab Q6HR PRN ORAL For Pain 01/07/21 18:15 01/14/21 18:14 01/09/21 15:36 Alprazolam (Xanax) 0.5 mg DAILY PRN ORAL For Anxiety 01/08/21 17:30 01/15/21 17:29 01/09/21 13:49 Cefepime HCl 2 gm/ Dextrose 100 ml @ 200 mls/hr Q24H IVPB 01/09/21 21:00 01/16/21 20:59 Heparin Sodium (Porcine) (Heparin 5000 units/ml) 5,000 units EVERY 12 HOURS SUBQ 01/07/21 21:00 02/21/21 20:59 01/09/21 09:08 [facility] 1 ea DAILY PRN MISC Per rx protocol 01/07/21 18:45 02/06/21 18:44 Vancomycin HCl 750 mg/Sodium Chloride 275 ml @ 183.333 mls/hr Q24H IVPB 01/08/21 20:00 01/13/21 19:59 01/08/21 20:58 Allergies: Coded Allergies: CODEINE (Verified Allergy, Unknown, 01/07/21) MORPHINE (Verified Allergy, Unknown, 07/22/12) Subjective pain controlled feeling weak Blood cx growing gram positive cooci Objective Last Vital Signs Date Time Temp Pulse Resp B/P (MAP) Pulse Ox O2 Delivery O2 Flow Rate FiO2 01/09/21 12:00 98.5 73 18 149/78 (101) 99 01/09/21 09:00 Room Air Laboratory Tests Test 01/09/21 06:05 White Blood Count 7.8 K/UL (4.8-10.8) Red Blood Count 3.92 M/UL (4.20-5.40) L Hemoglobin 10.1 G/DL (12.0-16.0) L Hematocrit 33.1 % (37.0-47.0) L Mean Corpuscular Volume 85 FL (80-99) Mean Corpuscular Hemoglobin 25.7 PG (27.0-31.0) L Mean Corpuscular Hemoglobin Concent 30.4 G/DL (32.0-36.0) L Red Cell Distribution Width 15.1 % (11.6-14.8) H Platelet Count 309 K/UL (150-450) Mean Platelet Volume 6.5 FL (6.5-10.1) Neutrophils (%) (Auto) 46.3 % (45.0-75.0) Lymphocytes (%) (Auto) 43.4 % (20.0-45.0) Monocytes (%) (Auto) 5.7 % (1.0-10.0) Eosinophils (%) (Auto) 3.8 % (0.0-3.0) H Basophils (%) (Auto) 0.8 % (0.0-2.0) Erythrocyte Sedimentation Rate 95 MM/HR (0-30) H Sodium Level 141 MMOL/L (136-145) Potassium Level 3.7 MMOL/L (3.5-5.1) Chloride Level 107 MMOL/L (98-107) Carbon Dioxide Level 27 MMOL/L (21-32) Anion Gap 7 mmol/L (5-15) Blood Urea Nitrogen 9 mg/dL (7-18) Creatinine 1.1 MG/DL (0.55-1.30) Estimat Glomerular Filtration Rate 58.1 mL/min (>60) Glucose Level 84 MG/DL (74-106) Calcium Level 9.2 MG/DL (8.5-10.1) Total Bilirubin 0.3 MG/DL (0.2-1.0) Aspartate Amino Transf (AST/SGOT) 18 U/L (15-37) Alanine Aminotransferase (ALT/SGPT) 15 U/L (12-78) Alkaline Phosphatase 80 U/L (46-116) C-Reactive Protein, Quantitative 5.3 mg/dL (0.00-0.90) H Total Protein 8.0 G/DL (6.4-8.2) Albumin 2.7 G/DL (3.4-5.0) L Globulin 5.3 g/dL Albumin/Globulin Ratio 0.5 (1.0-2.7) L Microbiology Date/Time Source Procedure Growth Status 01/07/21 14:39 Leg Left Gram Stain - Final Resulted 01/07/21 14:39 Wound Culture - Preliminary Usual Skin Soco Resulted 01/07/21 14:25 Blood Blood Culture - Preliminary Resulted 01/07/21 14:20 Blood Blood Culture - Preliminary Resulted Intake and Output 01/08/21 01/09/21 19:00 07:00 Intake Total 795 ml Output Total 300 ml Balance 795 ml -300 ml Intake Oral 720 ml IV Total 75 ml Output Urine Total 300 ml # Voids 4 1 Objective General appearance: alert, cooperative, no distress, appears stated age Head: Normocephalic, without obvious abnormality, atraumatic Eyes: conjunctivae/corneas clear. PERRL, EOM's intact. Fundi benign Throat: Lips, mucosa, and tongue normal. Teeth and gums normal Neck: supple, symmetrical, trachea midline, no adenopathy, thyroid: not enlarged, symmetric, no tenderness/mass/nodules, no carotid bruit and no JVD Lungs: clear to auscultation bilaterally Heart: regular rate and rhythm, S1, S2 normal, no murmur, click, rub or gallop Abdomen: soft, non-tender. Bowel sounds normal. No masses, no organomegaly Extremities: left leg lateral ulceration Pulses: 2+ and symmetric Skin: Skin color, texture, turgor normal. No rashes or lesions Neurologic: Grossly normal Assessment/Plan Assessment/Plan #Left leg ulceration with surrounding cellulitis s/p fall #gram pos bactremia #s/p fall #HTN #HLD - admit inpatient - ID eval - continue antibiotics per ID - wound care - Surgery eval - pain control - monitr labs Ashok Weeks M.D. Jan 09, 2021 18:58
[2021-01-09] MEDS: Vancomycin 750 MG in NS 275 ML IVPB SCH (19:43)
[2021-01-09 20:00] VITALS: BP 128/81
[2021-01-10] VITALS: BP 105/64
[2021-01-10 04:00] VITALS: BP 120/65
[2021-01-10] MEDS: HYDROcodone/Acetamin 10/325 tab ORAL PRN ×3 (05:42→20:17)
[2021-01-10 06:29] LABS: BASOPHILS % (AUTO) 0.8 % (0.0-2.0); EOSINOPHILS % (AUTO) 3.6 % (0.0-3.0); HEMATOCRIT 32.7 % (37.0-47.0); HEMOGLOBIN 10.1 G/DL (12.0-16.0); LYMPHOCYTES % (AUTO) 46.1 % (20.0-45.0); MEAN CORPUSCULAR VOLUME 84 FL (80-99); NEUTROPHILS % (AUTO) 43.5 % (45.0-75.0); PLATELET COUNT 329 K/UL (150-450); RED BLOOD COUNT 3.88 M/UL (4.20-5.40); RED CELL DISTRIBUTION WIDTH 15.5 % (11.6-14.8); WHITE BLOOD COUNT 8.2 K/UL (4.8-10.8)
[2021-01-10 07:05] LABS: ALBUMIN 2.8 G/DL (3.4-5.0); ALBUMIN/GLOBULIN RATIO 0.5 (1.0-2.7); BILIRUBIN,TOTAL 0.4 MG/DL (0.2-1.0); CALCIUM 9.1 MG/DL (8.5-10.1); CREATININE 1.1 MG/DL (0.55-1.30); POTASSIUM 3.5 MMOL/L (3.5-5.1)
[2021-01-10 08:00] VITALS: BP 139/86
[2021-01-10] MEDS: Heparin 5000 units/ml inj SUBQ SCH ×2 (09:07→20:32)
--- NOTE | 2021-01-10 10:13 | Surgery Progress Note ---
Surgery Progress Note Subjective Symptoms: improved, tolerating diet, voiding well, passing flatus, BM, pain decreased Objective Last 24 Hour Vital Signs Date Time Temp Pulse Resp B/P (MAP) Pulse Ox O2 Delivery O2 Flow Rate FiO2 01/10/21 08:00 96.4 72 18 139/86 (103) 98 01/10/21 04:00 98.3 71 20 120/65 (83) 96 01/10/21 00:00 98.2 72 18 105/64 (78) 96 01/09/21 21:00 Room Air 01/09/21 20:00 98.0 71 18 128/81 (97) 98 01/09/21 16:00 97.9 74 17 139/82 (101) 97 01/09/21 12:00 98.5 73 18 149/78 (101) 99 I&O Intake and Output 01/09/21 01/10/21 19:00 07:00 Intake Total 550 ml 770 ml Output Total 250 ml Balance 550 ml 520 ml Intake Oral 550 ml 770 ml Output Urine Total 250 ml # Voids 7 4 Dressing: saturated Wound: clean Cardiovascular: RSR Respiratory: clear Abdomen: soft, flat, non-tender, present bowel sounds, non-distended Extremities: tenderness - at open wound , no edema, no cyanosis Laboratory Tests Test 01/10/21 06:00 White Blood Count 8.2 K/UL (4.8-10.8) Red Blood Count 3.88 M/UL (4.20-5.40) L Hemoglobin 10.1 G/DL (12.0-16.0) L Hematocrit 32.7 % (37.0-47.0) L Mean Corpuscular Volume 84 FL (80-99) Mean Corpuscular Hemoglobin 26.0 PG (27.0-31.0) L Mean Corpuscular Hemoglobin Concent 30.8 G/DL (32.0-36.0) L Red Cell Distribution Width 15.5 % (11.6-14.8) H Platelet Count 329 K/UL (150-450) Mean Platelet Volume 6.6 FL (6.5-10.1) Neutrophils (%) (Auto) 43.5 % (45.0-75.0) L Lymphocytes (%) (Auto) 46.1 % (20.0-45.0) H Monocytes (%) (Auto) 6.0 % (1.0-10.0) Eosinophils (%) (Auto) 3.6 % (0.0-3.0) H Basophils (%) (Auto) 0.8 % (0.0-2.0) Sodium Level 141 MMOL/L (136-145) Potassium Level 3.5 MMOL/L (3.5-5.1) Chloride Level 106 MMOL/L (98-107) Carbon Dioxide Level 27 MMOL/L (21-32) Anion Gap 8 mmol/L (5-15) Blood Urea Nitrogen 9 mg/dL (7-18) Creatinine 1.1 MG/DL (0.55-1.30) Estimat Glomerular Filtration Rate 58.1 mL/min (>60) Glucose Level 78 MG/DL (74-106) Calcium Level 9.1 MG/DL (8.5-10.1) Total Bilirubin 0.4 MG/DL (0.2-1.0) Aspartate Amino Transf (AST/SGOT) 17 U/L (15-37) Alanine Aminotransferase (ALT/SGPT) 14 U/L (12-78) Alkaline Phosphatase 81 U/L (46-116) Total Protein 8.3 G/DL (6.4-8.2) H Albumin 2.8 G/DL (3.4-5.0) L Globulin 5.5 g/dL Albumin/Globulin Ratio 0.5 (1.0-2.7) L Plan Problems: (1) Dizziness (2) Grief reaction (3) Chronic pain (4) PTSD (post-traumatic stress disorder) (5) Cellulitis of left lower extremity Assessment & Plan: 72-year-old female recent trauma identified to have cellulitis of left lower extremity mid calf posterior noted mild oozing small less than 1 cm laceration no purulent drainage no abscess. Wound washed dressings applied. identified abrasion to the skin blood blister keep leg elevated while in bed antibiotics per infectious disease okay for diet we will continue with local wound care and monitor for improvement thank you light participation's care Bony mineralization within normal limits. No acute fracture is identified. There are degenerative changes partially visualized in the left knee joint. Partially visualized ankle joint appears maintained. No radiopaque foreign body. Impression: No acute fracture or dislocation. US noted. no dvt wound noted today with hematoma that was evacuated. 3cm x 3cm area open with soft tissue exposed. no pus, mild oozing blood wound washed. new dressings applied betadine swab, therahoney and wrap (6) malfunction of pouch Natan Goins Jan 10, 2021 10:13
[2021-01-10 12:00] VITALS: BP 130/84
--- NOTE | 2021-01-10 12:34 | Cardiology Report ---
APPROVED REPORT EXAM: Two-dimensional and M-mode echocardiogram with Doppler and color Doppler. INDICATION VEG M-Mode DIMENSIONS IVSd0.7 (0.7-1.1cm)Left Atrium (MM)2.8 (1.6-4.0cm) LVDd3.7 (3.5-5.6cm)Aortic Root3.4 (2.0-3.7cm) PWd0.9 (0.7-1.1cm)Aortic Cusp Exc.1.6 (1.5-2.0cm) IVSs1.2 cmEPSS0.4 (>1.0cm) LVDs1.9 (2.5-4.0cm) PWs1.5 cm <Conclusion> Normal left ventricular chamber size, systolic function and wall motion. Left ventricular ejection fraction estimated to be 60 %. No evidence of left ventricular hypertrophy. No evidence of pericardial effusion. All other cardiac chamber sizes are within normal limits. Focal aortic valve sclerosis with adequate cusp excursion. Thickened mitral valve leaflets with normal excursion. Mitral annulus and aortic root calcification. Pulmonic valve not well visualized. Normal tricuspid valve structure. IVC measures at 2.1 cm and with slight physiologic collapse. No discrete vegetations seen, however SBE may not be excluded by transthoracic 2-D echo. A color flow and spectral Doppler study was performed and revealed: Mild To moderate aortic regurgitation. Trace mitral regurgitation. Mitral diastolic velocities suggest reduced left ventricular relaxation c/w mild diastolic dysfunction (Grade I). Mild tricuspid regurgitation. Tricuspid systolic velocities suggests peak right ventricular systolic pressure of 40 mmHg, consistent with mild pulmonary hypertension. Trace pulmonic regurgitation present.
[2021-01-10 16:00] VITALS: BP 134/85
[2021-01-10] MEDS: ALPRAZolam 0.5mg tab ORAL PRN (17:53)
--- NOTE | 2021-01-10 18:13 | Internal Med Progress Note ---
Subjective Physician Name Ashok Weeks Attending Physician Ashok Weeks M.D. Current Medications Medications (Trade) Dose Ordered Sig/Ishmael Route PRN Reason Start Time Stop Time Status Last Admin Dose Admin Acetaminophen/ Hydrocodone Bitart ([place] 10/325) 1 tab Q6HR PRN ORAL For Pain 01/07/21 18:15 01/14/21 18:14 01/10/21 12:50 Alprazolam (Xanax) 0.5 mg DAILY PRN ORAL For Anxiety 01/08/21 17:30 01/15/21 17:29 01/10/21 17:53 Cefepime HCl 2 gm/ Dextrose 100 ml @ 200 mls/hr Q24H IVPB 01/09/21 21:00 01/16/21 20:59 01/09/21 21:50 Heparin Sodium (Porcine) (Heparin 5000 units/ml) 5,000 units EVERY 12 HOURS SUBQ 01/07/21 21:00 02/21/21 20:59 01/10/21 09:07 Vancomycin HCl ([facility] pharmacy to dose) 1 ea DAILY PRN MISC Per rx protocol 01/07/21 18:45 02/06/21 18:44 Vancomycin HCl 750 mg/Sodium Chloride 275 ml @ 183.333 mls/hr Q24H IVPB 01/08/21 20:00 01/13/21 19:59 01/09/21 19:43 Allergies: Coded Allergies: CODEINE (Verified Allergy, Unknown, 01/07/21) MORPHINE (Verified Allergy, Unknown, 07/22/12) Subjective pain controlled feeling weak Blood cx growing gram positive cocci echo Normal left ventricular chamber size, systolic function and wall motion. Left ventricular ejection fraction estimated to be 60 %. No evidence of left ventricular hypertrophy. No evidence of pericardial effusion. All other cardiac chamber sizes are within normal limits. Focal aortic valve sclerosis with adequate cusp excursion. Thickened mitral valve leaflets with normal excursion. Mitral annulus and aortic root calcification. Pulmonic valve not well visualized. Normal tricuspid valve structure. IVC measures at 2.1 cm and with slight physiologic collapse. No discrete vegetations seen, however SBE may not be excluded by transthoracic 2-D echo. Objective Last Vital Signs Date Time Temp Pulse Resp B/P (MAP) Pulse Ox O2 Delivery O2 Flow Rate FiO2 01/10/21 16:00 97.9 72 18 134/85 (101) 96 01/10/21 09:00 Room Air Laboratory Tests Test 01/10/21 06:00 White Blood Count 8.2 K/UL (4.8-10.8) Red Blood Count 3.88 M/UL (4.20-5.40) L Hemoglobin 10.1 G/DL (12.0-16.0) L Hematocrit 32.7 % (37.0-47.0) L Mean Corpuscular Volume 84 FL (80-99) Mean Corpuscular Hemoglobin 26.0 PG (27.0-31.0) L Mean Corpuscular Hemoglobin Concent 30.8 G/DL (32.0-36.0) L Red Cell Distribution Width 15.5 % (11.6-14.8) H Platelet Count 329 K/UL (150-450) Mean Platelet Volume 6.6 FL (6.5-10.1) Neutrophils (%) (Auto) 43.5 % (45.0-75.0) L Lymphocytes (%) (Auto) 46.1 % (20.0-45.0) H Monocytes (%) (Auto) 6.0 % (1.0-10.0) Eosinophils (%) (Auto) 3.6 % (0.0-3.0) H Basophils (%) (Auto) 0.8 % (0.0-2.0) Sodium Level 141 MMOL/L (136-145) Potassium Level 3.5 MMOL/L (3.5-5.1) Chloride Level 106 MMOL/L (98-107) Carbon Dioxide Level 27 MMOL/L (21-32) Anion Gap 8 mmol/L (5-15) Blood Urea Nitrogen 9 mg/dL (7-18) Creatinine 1.1 MG/DL (0.55-1.30) Estimat Glomerular Filtration Rate 58.1 mL/min (>60) Glucose Level 78 MG/DL (74-106) Calcium Level 9.1 MG/DL (8.5-10.1) Total Bilirubin 0.4 MG/DL (0.2-1.0) Aspartate Amino Transf (AST/SGOT) 17 U/L (15-37) Alanine Aminotransferase (ALT/SGPT) 14 U/L (12-78) Alkaline Phosphatase 81 U/L (46-116) Total Protein 8.3 G/DL (6.4-8.2) H Albumin 2.8 G/DL (3.4-5.0) L Globulin 5.5 g/dL Albumin/Globulin Ratio 0.5 (1.0-2.7) L Intake and Output 01/09/21 01/10/21 19:00 07:00 Intake Total 550 ml 770 ml Output Total 250 ml Balance 550 ml 520 ml Intake Oral 550 ml 770 ml Output Urine Total 250 ml # Voids 7 4 Objective General appearance: alert, cooperative, no distress, appears stated age Head: Normocephalic, without obvious abnormality, atraumatic Eyes: conjunctivae/corneas clear. PERRL, EOM's intact. Fundi benign Throat: Lips, mucosa, and tongue normal. Teeth and gums normal Neck: supple, symmetrical, trachea midline, no adenopathy, thyroid: not enlarged, symmetric, no tenderness/mass/nodules, no carotid bruit and no JVD Lungs: clear to auscultation bilaterally Heart: regular rate and rhythm, S1, S2 normal, no murmur, click, rub or gallop Abdomen: soft, non-tender. Bowel sounds normal. No masses, no organomegaly Extremities: left leg lateral ulceration Pulses: 2+ and symmetric Skin: Skin color, texture, turgor normal. No rashes or lesions Neurologic: Grossly normal Assessment/Plan Assessment/Plan #Left leg ulceration with surrounding cellulitis s/p fall #gram pos bactremia #s/p fall #HTN #HLD - admit inpatient - ID eval - continue antibiotics per ID - wound care - Surgery eval - pain control - monitr labs Ashok Weeks M.D. Jan 10, 2021 18:13
[2021-01-10 20:00] VITALS: BP 150/85
[2021-01-10] MEDS: Vancomycin 750 MG in NS 275 ML IVPB SCH (21:40)
[2021-01-11] VITALS: BP 143/84
[2021-01-11] MEDS: HYDROcodone/Acetamin 10/325 tab ORAL PRN ×4 (02:16→21:52)
[2021-01-11 04:00] VITALS: BP 140/79
[2021-01-11 08:00] VITALS: BP 133/76
[2021-01-11] MEDS: Heparin 5000 units/ml inj SUBQ SCH ×2 (08:12→20:16)
--- NOTE | 2021-01-11 11:36 | Surgery Progress Note ---
Surgery Progress Note Subjective Symptoms: improved, tolerating diet, voiding well, passing flatus, BM, pain decreased Objective Last 24 Hour Vital Signs Date Time Temp Pulse Resp B/P (MAP) Pulse Ox O2 Delivery O2 Flow Rate FiO2 01/11/21 11:28 Room Air 01/11/21 09:07 98.1 01/11/21 09:00 Room Air 01/11/21 08:00 98.2 79 18 133/76 (95) 100 01/11/21 04:00 98.1 61 18 140/79 (99) 100 01/11/21 00:00 97.8 65 17 143/84 (103) 100 01/10/21 21:00 Room Air 01/10/21 20:00 97.7 69 18 150/85 (106) 100 01/10/21 16:00 97.9 72 18 134/85 (101) 96 01/10/21 13:20 97.8 01/10/21 12:00 97.8 80 18 130/84 (99) 98 I&O Intake and Output 01/10/21 01/11/21 19:00 07:00 Intake Total 600 ml 855.000 ml Balance 600 ml 855.000 ml Intake Oral 600 ml 480 ml IV Total 375.000 ml # Voids 5 4 Dressing: saturated Wound: clean Cardiovascular: RSR Respiratory: clear Abdomen: soft, flat, non-tender, present bowel sounds, non-distended Extremities: tenderness, no edema, no cyanosis, pulses, other Laboratory Tests Test 01/10/21 19:10 Vancomycin Level Trough 10.5 ug/mL (5.0-12.0) Plan Problems: (1) Dizziness (2) Grief reaction (3) Chronic pain (4) PTSD (post-traumatic stress disorder) (5) Cellulitis of left lower extremity Assessment & Plan: 72-year-old female recent trauma identified to have cellulitis of left lower extremity mid calf posterior noted mild oozing small less than 1 cm laceration no purulent drainage no abscess. Wound washed dressings applied. identified abrasion to the skin blood blister keep leg elevated while in bed antibiotics per infectious disease okay for diet we will continue with local wound care and monitor for improvement thank you light participation's care Bony mineralization within normal limits. No acute fracture is identified. There are degenerative changes partially visualized in the left knee joint. Partially visualized ankle joint appears maintained. No radiopaque foreign body. Impression: No acute fracture or dislocation. US noted. no dvt wound noted today with hematoma that was evacuated. 3cm x 3cm area open with soft tissue exposed. no pus, mild oozing blood wound washed. new dressings applied betadine swab, therahoney and wrap (6) malfunction of pouch Natan Goins Jan 11, 2021 11:36
[2021-01-11 16:00] VITALS: BP 129/83
--- NOTE | 2021-01-11 17:47 | Infectious Diseases Prog Note ---
Assessment/Plan Assessment/Plan ASSESSMENT AND PLAN: 1. left leg cellulitis, ? 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 History of fall. 3. History of ulcerative colitis. 4. Ileostomy including Kock ileostomy. 5. History of hypertension. 6. Blood pressure treatment per primary care team. 7. History of proctocolectomy. 8. History of multiple abdominal surgeries. 9. Allergies to morphine and codeine. 10. Social history is negative. 11. Family history is noncontributory. 12. MAR is noted. 13. Case was discussed with RN. 14. Old records were reviewed. 15. Continue treatment per primary consultants. 16. Wound care protocol. Consider evaluation of left leg wound. Subjective Constitutional: Reports: fatigue; Denies: fever HEENT: Denies: congestion Respiratory: Denies: shortness of breath Cardiovascular: Denies: chest pain Gastrointestinal/Abdominal: Denies: nausea, vomiting, diarrhea Genitourinary: Reports: other - no munson Neurologic: Denies: headache Psychiatric: Denies: depression Skin: Denies: rash Hematologic: Denies: bleeding Musculoskeletal: Reports: pain - less left leg pain Allergies: Coded Allergies: CODEINE (Verified Allergy, Unknown, 01/07/21) MORPHINE (Verified Allergy, Unknown, 07/22/12) Objective Last 24 Hour Vital Signs Date Time Temp Pulse Resp B/P (MAP) Pulse Ox O2 Delivery O2 Flow Rate FiO2 01/11/21 16:00 98.1 67 17 129/83 (98) 97 01/11/21 11:28 Room Air 01/11/21 09:07 98.1 01/11/21 09:00 Room Air 01/11/21 08:00 98.2 79 18 133/76 (95) 100 01/11/21 04:00 98.1 61 18 140/79 (99) 100 01/11/21 00:00 97.8 65 17 143/84 (103) 100 01/10/21 21:00 Room Air 01/10/21 20:00 97.7 69 18 150/85 (106) 100 Height (Feet): 5 Height (Inches): 3.00 Weight (Pounds): 127 General Appearance: no acute distress HEENT: normocephalic, atraumatic, anicteric, mucous membranes moist Respiratory/Chest: lungs clear, normal breath sounds, no respiratory distress, no accessory muscle use Cardiovascular: normal rate, regular rhythm, no gallop/murmur, no JVD Abdomen: normal bowel sounds, soft, non tender, no organomegaly, non distended Genitourinary: other - no munson Extremities: no cyanosis, other - less left leg swellng and pain, wound stable, less cellultis Skin: no rash Neurologic/Psychiatric: personal banker II-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 No acute fracture is identified. There are degenerative changes partially visualized in the left knee joint. Partially visualized ankle joint appears maintained. No radiopaque foreign body. Impression: No acute fracture or dislocation. Chest - x-ray - Procedure: XRAY Chest 1v Indication: Shortness of breath Technique: XRAY Chest 1v Comparison: 04/23/2017 Findings: Patient is rotated to the right significantly. Within these limitations: Heart size and mediastinal contours within normal limits and grossly stable compared to the prior exam. No definite focal airspace consolidation. No pleural effusion or pneumothorax. There is scoliosis and degenerative changes of the spine. No acute osseous abnormality. IMPRESSION: Limited exam due to patient rotation. No definite radiographic evidence of acute cardiopulmonary disease. Microbiology Date/Time Source Procedure Growth Status 01/07/21 14:39 Leg Left Gram Stain - Final Complete 01/07/21 14:39 Wound Culture - Final Usual Skin Soco Complete 01/07/21 14:25 Blood Blood Culture - Final Staph Hominis Ssp Hominis Complete Labs Test 01/09/21 06:05 01/10/21 06:00 01/10/21 19:10 White Blood Count 7.8 K/UL (4.8-10.8) 8.2 K/UL (4.8-10.8) Red Blood Count 3.92 M/UL (4.20-5.40) 3.88 M/UL (4.20-5.40) Hemoglobin 10.1 G/DL (12.0-16.0) 10.1 G/DL (12.0-16.0) Hematocrit 33.1 % (37.0-47.0) 32.7 % (37.0-47.0) Mean Corpuscular Volume 85 FL (80-99) 84 FL (80-99) Mean Corpuscular Hemoglobin 25.7 PG (27.0-31.0) 26.0 PG (27.0-31.0) Mean Corpuscular Hemoglobin Concent 30.4 G/DL (32.0-36.0) 30.8 G/DL (32.0-36.0) Red Cell Distribution Width 15.1 % (11.6-14.8) 15.5 % (11.6-14.8) Platelet Count 309 K/UL (150-450) 329 K/UL (150-450) Mean Platelet Volume 6.5 FL (6.5-10.1) 6.6 FL (6.5-10.1) Neutrophils (%) (Auto) 46.3 % (45.0-75.0) 43.5 % (45.0-75.0) Lymphocytes (%) (Auto) 43.4 % (20.0-45.0) 46.1 % (20.0-45.0) Monocytes (%) (Auto) 5.7 % (1.0-10.0) 6.0 % (1.0-10.0) Eosinophils (%) (Auto) 3.8 % (0.0-3.0) 3.6 % (0.0-3.0) Basophils (%) (Auto) 0.8 % (0.0-2.0) 0.8 % (0.0-2.0) Erythrocyte Sedimentation Rate 95 MM/HR (0-30) Sodium Level 141 MMOL/L (136-145) 141 MMOL/L (136-145) Potassium Level 3.7 MMOL/L (3.5-5.1) 3.5 MMOL/L (3.5-5.1) Chloride Level 107 MMOL/L (98-107) 106 MMOL/L (98-107) Carbon Dioxide Level 27 MMOL/L (21-32) 27 MMOL/L (21-32) Anion Gap 7 mmol/L (5-15) 8 mmol/L (5-15) Blood Urea Nitrogen 9 mg/dL (7-18) 9 mg/dL (7-18) Creatinine 1.1 MG/DL (0.55-1.30) 1.1 MG/DL (0.55-1.30) Estimat Glomerular Filtration Rate 58.1 mL/min (>60) 58.1 mL/min (>60) Glucose Level 84 MG/DL (74-106) 78 MG/DL (74-106) Calcium Level 9.2 MG/DL (8.5-10.1) 9.1 MG/DL (8.5-10.1) Total Bilirubin 0.3 MG/DL (0.2-1.0) 0.4 MG/DL (0.2-1.0) Aspartate Amino Transf (AST/SGOT) 18 U/L (15-37) 17 U/L (15-37) Alanine Aminotransferase (ALT/SGPT) 15 U/L (12-78) 14 U/L (12-78) Alkaline Phosphatase 80 U/L (46-116) 81 U/L (46-116) C-Reactive Protein, Quantitative 5.3 mg/dL (0.00-0.90) Total Protein 8.0 G/DL (6.4-8.2) 8.3 G/DL (6.4-8.2) Albumin 2.7 G/DL (3.4-5.0) 2.8 G/DL (3.4-5.0) Globulin 5.3 g/dL 5.5 g/dL Albumin/Globulin Ratio 0.5 (1.0-2.7) 0.5 (1.0-2.7) Vancomycin Level Trough 10.5 ug/mL (5.0-12.0) Laboratory Tests Test 01/10/21 19:10 Vancomycin Level Trough 10.5 ug/mL (5.0-12.0) Current Medications Medications (Trade) Dose Ordered Sig/Ishmael Route PRN Reason Start Time Stop Time Status Last Admin Dose Admin Acetaminophen/ Hydrocodone Bitart ([place] 10/325) 1 tab Q6HR PRN ORAL For Pain 01/07/21 18:15 01/14/21 18:14 01/11/21 14:59 Alprazolam (Xanax) 0.5 mg DAILY PRN ORAL For Anxiety 01/08/21 17:30 01/15/21 17:29 01/10/21 17:53 Cefepime HCl 2 gm/ Dextrose 100 ml @ 200 mls/hr Q24H IVPB 01/09/21 21:00 01/16/21 20:59 01/10/21 20:18 Heparin Sodium (Porcine) (Heparin 5000 units/ml) 5,000 units EVERY 12 HOURS SUBQ 01/07/21 21:00 02/21/21 20:59 01/11/21 08:12 Vancomycin HCl ([facility] pharmacy to dose) 1 ea DAILY PRN MISC Per rx protocol 01/07/21 18:45 02/06/21 18:44 Vancomycin HCl 750 mg/Sodium Chloride 275 ml @ 183.333 mls/hr Q24H IVPB 01/08/21 20:00 01/13/21 19:59 01/10/21 21:40 Cherise Ramsey MD Jan 11, 2021 17:47
--- NOTE | 2021-01-11 19:59 | Internal Med Progress Note ---
Subjective Physician Name Ashok Weeks Attending Physician Ashok Weeks M.D. Current Medications Medications (Trade) Dose Ordered Sig/Ishmael Route PRN Reason Start Time Stop Time Status Last Admin Dose Admin Acetaminophen/ Hydrocodone Bitart ([place] 10/325) 1 tab Q6HR PRN ORAL For Pain 01/07/21 18:15 01/14/21 18:14 01/11/21 14:59 Alprazolam (Xanax) 0.5 mg DAILY PRN ORAL For Anxiety 01/08/21 17:30 01/15/21 17:29 01/10/21 17:53 Cefepime HCl 2 gm/ Dextrose 100 ml @ 200 mls/hr Q24H IVPB 01/09/21 21:00 01/16/21 20:59 01/10/21 20:18 Heparin Sodium (Porcine) (Heparin 5000 units/ml) 5,000 units EVERY 12 HOURS SUBQ 01/07/21 21:00 02/21/21 20:59 01/11/21 08:12 Vancomycin HCl ([facility] pharmacy to dose) 1 ea DAILY PRN MISC Per rx protocol 01/07/21 18:45 02/06/21 18:44 Vancomycin HCl 750 mg/Sodium Chloride 275 ml @ 183.333 mls/hr Q24H IVPB 01/11/21 20:00 01/16/21 19:59 Allergies: Coded Allergies: CODEINE (Verified Allergy, Unknown, 01/07/21) MORPHINE (Verified Allergy, Unknown, 07/22/12) Subjective pain controlled feeling weak Blood cx growing gram positive cocci echo Normal left ventricular chamber size, systolic function and wall motion. Left ventricular ejection fraction estimated to be 60 %. No evidence of left ventricular hypertrophy. No evidence of pericardial effusion. All other cardiac chamber sizes are within normal limits. Focal aortic valve sclerosis with adequate cusp excursion. Thickened mitral valve leaflets with normal excursion. Mitral annulus and aortic root calcification. Pulmonic valve not well visualized. Normal tricuspid valve structure. IVC measures at 2.1 cm and with slight physiologic collapse. No discrete vegetations seen, however SBE may not be excluded by transthoracic 2-D echo. Objective Last Vital Signs Date Time Temp Pulse Resp B/P (MAP) Pulse Ox O2 Delivery O2 Flow Rate FiO2 01/11/21 16:00 98.1 67 17 129/83 (98) 97 01/11/21 11:28 Room Air Intake and Output 01/10/21 01/11/21 19:00 07:00 Intake Total 600 ml 855.000 ml Balance 600 ml 855.000 ml Intake Oral 600 ml 480 ml IV Total 375.000 ml # Voids 5 4 Objective General appearance: alert, cooperative, no distress, appears stated age Head: Normocephalic, without obvious abnormality, atraumatic Eyes: conjunctivae/corneas clear. PERRL, EOM's intact. Fundi benign Throat: Lips, mucosa, and tongue normal. Teeth and gums normal Neck: supple, symmetrical, trachea midline, no adenopathy, thyroid: not enlarged, symmetric, no tenderness/mass/nodules, no carotid bruit and no JVD Lungs: clear to auscultation bilaterally Heart: regular rate and rhythm, S1, S2 normal, no murmur, click, rub or gallop Abdomen: soft, non-tender. Bowel sounds normal. No masses, no organomegaly Extremities: left leg lateral ulceration Pulses: 2+ and symmetric Skin: Skin color, texture, turgor normal. No rashes or lesions Neurologic: Grossly normal Assessment/Plan Assessment/Plan #Left leg ulceration with surrounding cellulitis s/p fall #gram pos bactremia #s/p fall #HTN #HLD - admit inpatient - ID eval - continue antibiotics per ID - wound care - Surgery eval - pain control - monitr labs Ashok Weeks M.D. Jan 11, 2021 19:59
[2021-01-11 20:00] VITALS: BP 144/87
[2021-01-11] MEDS: ALPRAZolam 0.5mg tab ORAL PRN (20:13)
[2021-01-11] MEDS: Vancomycin 750 MG in NS 275 ML IVPB SCH (20:14)
[2021-01-12] VITALS: BP 140/84
[2021-01-12 04:00] VITALS: BP 136/85
[2021-01-12] MEDS: HYDROcodone/Acetamin 10/325 tab ORAL PRN ×3 (06:08→21:13)
[2021-01-12 06:51] LABS: ALANINE AMINOTRANSFERASE 17 U/L (12-78); ALBUMIN 2.8 G/DL (3.4-5.0); ALBUMIN/GLOBULIN RATIO 0.5 (1.0-2.7); ALKALINE PHOSPHATASE 80 U/L (46-116); ANION GAP 8 mmol/L (5-15); ASPARTATE AMINO TRANSFERASE 21 U/L (15-37); BILIRUBIN,TOTAL 0.3 MG/DL (0.2-1.0); BLOOD UREA NITROGEN 8 mg/dL (7-18); CALCIUM 9.3 MG/DL (8.5-10.1); CARBON DIOXIDE 29 MMOL/L (21-32); CHLORIDE 105 MMOL/L (98-107); CREATININE 0.9 MG/DL (0.55-1.30); POTASSIUM 3.5 MMOL/L (3.5-5.1); SODIUM 141 MMOL/L (136-145)
[2021-01-12 06:56] LABS: BASOPHILS % (AUTO) 0.9 % (0.0-2.0); EOSINOPHILS % (AUTO) 2.7 % (0.0-3.0); HEMATOCRIT 34.3 % (37.0-47.0); HEMOGLOBIN 10.4 G/DL (12.0-16.0); LYMPHOCYTES % (AUTO) 38.4 % (20.0-45.0); MEAN CORPUSCULAR VOLUME 85 FL (80-99); MONOCYTES % (AUTO) 6.4 % (1.0-10.0); NEUTROPHILS % (AUTO) 51.7 % (45.0-75.0); PLATELET COUNT 328 K/UL (150-450); RED BLOOD COUNT 4.05 M/UL (4.20-5.40); RED CELL DISTRIBUTION WIDTH 15.1 % (11.6-14.8)
[2021-01-12 08:00] VITALS: BP 150/95
[2021-01-12] MEDS: Heparin 5000 units/ml inj SUBQ SCH ×2 (08:37→20:17)
--- NOTE | 2021-01-12 11:07 | Surgery Progress Note ---
Surgery Progress Note Subjective Additional Comments doing better no n/v/f/c feels better comfortable dressings changed and wound improving patient deciding between home health and snf placement Objective Last 24 Hour Vital Signs Date Time Temp Pulse Resp B/P (MAP) Pulse Ox O2 Delivery O2 Flow Rate FiO2 01/12/21 09:00 Room Air 01/12/21 08:00 98.0 78 18 150/95 (113) 97 01/12/21 08:00 98.0 78 16 150/95 (113) 97 01/12/21 04:00 97.9 71 18 136/85 (102) 97 01/12/21 00:00 98.1 69 17 140/84 (102) 98 01/11/21 21:00 Room Air 01/11/21 20:00 97.6 67 18 144/87 (106) 96 01/11/21 16:00 98.1 67 17 129/83 (98) 97 01/11/21 11:28 Room Air I&O Intake and Output 01/11/21 01/12/21 19:00 07:00 Intake Total 450 ml 735 ml Output Total 1000 ml Balance 450 ml -265 ml Intake Oral 360 ml IV Total 375 ml Other 450 ml Output Urine Total 1000 ml # Voids 1 Dressing: saturated, other Wound: clean, other Cardiovascular: RSR Abdomen: soft, flat, non-tender, present bowel sounds, non-distended Extremities: tenderness, no edema, no cyanosis, pulses, other Laboratory Tests Test 01/12/21 06:00 White Blood Count 9.0 K/UL (4.8-10.8) Red Blood Count 4.05 M/UL (4.20-5.40) L Hemoglobin 10.4 G/DL (12.0-16.0) L Hematocrit 34.3 % (37.0-47.0) L Mean Corpuscular Volume 85 FL (80-99) Mean Corpuscular Hemoglobin 25.8 PG (27.0-31.0) L Mean Corpuscular Hemoglobin Concent 30.4 G/DL (32.0-36.0) L Red Cell Distribution Width 15.1 % (11.6-14.8) H Platelet Count 328 K/UL (150-450) Mean Platelet Volume 6.6 FL (6.5-10.1) Neutrophils (%) (Auto) 51.7 % (45.0-75.0) Lymphocytes (%) (Auto) 38.4 % (20.0-45.0) Monocytes (%) (Auto) 6.4 % (1.0-10.0) Eosinophils (%) (Auto) 2.7 % (0.0-3.0) Basophils (%) (Auto) 0.9 % (0.0-2.0) Sodium Level 141 MMOL/L (136-145) Potassium Level 3.5 MMOL/L (3.5-5.1) Chloride Level 105 MMOL/L (98-107) Carbon Dioxide Level 29 MMOL/L (21-32) Anion Gap 8 mmol/L (5-15) Blood Urea Nitrogen 8 mg/dL (7-18) Creatinine 0.9 MG/DL (0.55-1.30) Estimat Glomerular Filtration Rate > 60 mL/min (>60) Glucose Level 81 MG/DL (74-106) Calcium Level 9.3 MG/DL (8.5-10.1) Total Bilirubin 0.3 MG/DL (0.2-1.0) Aspartate Amino Transf (AST/SGOT) 21 U/L (15-37) Alanine Aminotransferase (ALT/SGPT) 17 U/L (12-78) Alkaline Phosphatase 80 U/L (46-116) Total Protein 8.1 G/DL (6.4-8.2) Albumin 2.8 G/DL (3.4-5.0) L Globulin 5.3 g/dL Albumin/Globulin Ratio 0.5 (1.0-2.7) L Plan Problems: (1) Dizziness (2) Grief reaction (3) Chronic pain (4) PTSD (post-traumatic stress disorder) (5) Cellulitis of left lower extremity Assessment & Plan: 72-year-old female recent trauma identified to have cellulitis of left lower extremity mid calf posterior noted mild oozing small less than 1 cm laceration no purulent drainage no abscess. Wound washed dressings applied. identified abrasion to the skin blood blister keep leg elevated while in bed antibiotics per infectious disease okay for diet we will continue with local wound care and monitor for improvement thank you light participation's care Bony mineralization within normal limits. No acute fracture is identified. There are degenerative changes partially visualized in the left knee joint. Partially visualized ankle joint appears maintained. No radiopaque foreign body. Impression: No acute fracture or dislocation. US noted. no dvt wound noted today with hematoma that was evacuated. 3cm x 3cm area open with soft tissue exposed. no pus, mild oozing blood wound washed. new dressings applied betadine swab, therahoney and wrap cont dressings plan d/c home with home health or snf place ment needs pt/ot walker discussed with patient gait training (6) malfunction of pouch Natan Goins Jan 12, 2021 11:07
[2021-01-12 12:00] VITALS: BP 128/81
[2021-01-12] MEDS: ALPRAZolam 0.5mg tab ORAL PRN (12:08)
[2021-01-12 16:00] VITALS: BP 122/93
--- NOTE | 2021-01-12 18:54 | Internal Med Progress Note ---
Subjective Physician Name Ashok Weeks Attending Physician Ashok Weeks M.D. Current Medications Medications (Trade) Dose Ordered Sig/Ishmael Route PRN Reason Start Time Stop Time Status Last Admin Dose Admin Acetaminophen/ Hydrocodone Bitart ([place] 10/325) 1 tab Q6HR PRN ORAL For Pain 01/07/21 18:15 01/14/21 18:14 01/12/21 14:57 Alprazolam (Xanax) 0.5 mg DAILY PRN ORAL For Anxiety 01/08/21 17:30 01/15/21 17:29 01/12/21 12:08 Cefepime HCl 2 gm/ Dextrose 100 ml @ 200 mls/hr Q24H IVPB 01/09/21 21:00 01/16/21 20:59 01/11/21 21:51 Heparin Sodium (Porcine) (Heparin 5000 units/ml) 5,000 units EVERY 12 HOURS SUBQ 01/07/21 21:00 02/21/21 20:59 01/12/21 08:37 Vancomycin HCl ([facility] pharmacy to dose) 1 ea DAILY PRN MISC Per rx protocol 01/07/21 18:45 02/06/21 18:44 Vancomycin HCl 750 mg/Sodium Chloride 275 ml @ 183.333 mls/hr Q24H IVPB 01/11/21 20:00 01/16/21 19:59 01/11/21 20:14 Allergies: Coded Allergies: CODEINE (Verified Allergy, Unknown, 01/07/21) MORPHINE (Verified Allergy, Unknown, 07/22/12) Subjective pain controlled feeling weak Blood cx growing gram positive cocci echo Normal left ventricular chamber size, systolic function and wall motion. Left ventricular ejection fraction estimated to be 60 %. No evidence of left ventricular hypertrophy. No evidence of pericardial effusion. All other cardiac chamber sizes are within normal limits. Focal aortic valve sclerosis with adequate cusp excursion. Thickened mitral valve leaflets with normal excursion. Mitral annulus and aortic root calcification. Pulmonic valve not well visualized. Normal tricuspid valve structure. IVC measures at 2.1 cm and with slight physiologic collapse. No discrete vegetations seen, however SBE may not be excluded by transthoracic 2-D echo. Objective Last Vital Signs Date Time Temp Pulse Resp B/P (MAP) Pulse Ox O2 Delivery O2 Flow Rate FiO2 01/12/21 16:00 97.1 82 20 122/93 (103) 97 01/12/21 09:00 Room Air Laboratory Tests Test 01/12/21 06:00 White Blood Count 9.0 K/UL (4.8-10.8) Red Blood Count 4.05 M/UL (4.20-5.40) L Hemoglobin 10.4 G/DL (12.0-16.0) L Hematocrit 34.3 % (37.0-47.0) L Mean Corpuscular Volume 85 FL (80-99) Mean Corpuscular Hemoglobin 25.8 PG (27.0-31.0) L Mean Corpuscular Hemoglobin Concent 30.4 G/DL (32.0-36.0) L Red Cell Distribution Width 15.1 % (11.6-14.8) H Platelet Count 328 K/UL (150-450) Mean Platelet Volume 6.6 FL (6.5-10.1) Neutrophils (%) (Auto) 51.7 % (45.0-75.0) Lymphocytes (%) (Auto) 38.4 % (20.0-45.0) Monocytes (%) (Auto) 6.4 % (1.0-10.0) Eosinophils (%) (Auto) 2.7 % (0.0-3.0) Basophils (%) (Auto) 0.9 % (0.0-2.0) Sodium Level 141 MMOL/L (136-145) Potassium Level 3.5 MMOL/L (3.5-5.1) Chloride Level 105 MMOL/L (98-107) Carbon Dioxide Level 29 MMOL/L (21-32) Anion Gap 8 mmol/L (5-15) Blood Urea Nitrogen 8 mg/dL (7-18) Creatinine 0.9 MG/DL (0.55-1.30) Estimat Glomerular Filtration Rate > 60 mL/min (>60) Glucose Level 81 MG/DL (74-106) Calcium Level 9.3 MG/DL (8.5-10.1) Total Bilirubin 0.3 MG/DL (0.2-1.0) Aspartate Amino Transf (AST/SGOT) 21 U/L (15-37) Alanine Aminotransferase (ALT/SGPT) 17 U/L (12-78) Alkaline Phosphatase 80 U/L (46-116) Total Protein 8.1 G/DL (6.4-8.2) Albumin 2.8 G/DL (3.4-5.0) L Globulin 5.3 g/dL Albumin/Globulin Ratio 0.5 (1.0-2.7) L Microbiology Date/Time Source Procedure Growth Status 01/10/21 17:10 Nasopharynx Coronavirus COVID-19 PCR ([facility]) - Final Complete 01/10/21 06:10 Blood Blood Culture - Preliminary NO GROWTH AFTER 24 HOURS Resulted 01/10/21 06:00 Blood Blood Culture - Preliminary NO GROWTH AFTER 24 HOURS Resulted Intake and Output 01/11/21 01/12/21 19:00 07:00 Intake Total 450 ml 735 ml Output Total 1000 ml Balance 450 ml -265 ml Intake Oral 360 ml IV Total 375 ml Other 450 ml Output Urine Total 1000 ml # Voids 1 Objective General appearance: alert, cooperative, no distress, appears stated age Head: Normocephalic, without obvious abnormality, atraumatic Eyes: conjunctivae/corneas clear. PERRL, EOM's intact. Fundi benign Throat: Lips, mucosa, and tongue normal. Teeth and gums normal Neck: supple, symmetrical, trachea midline, no adenopathy, thyroid: not enlarged, symmetric, no tenderness/mass/nodules, no carotid bruit and no JVD Lungs: clear to auscultation bilaterally Heart: regular rate and rhythm, S1, S2 normal, no murmur, click, rub or gallop Abdomen: soft, non-tender. Bowel sounds normal. No masses, no organomegaly Extremities: left leg lateral ulceration Pulses: 2+ and symmetric Skin: Skin color, texture, turgor normal. No rashes or lesions Neurologic: Grossly normal Assessment/Plan Assessment/Plan #Left leg ulceration with surrounding cellulitis s/p fall #gram pos bactremia #s/p fall #HTN #HLD #Glocuma - admit inpatient - ID eval - continue antibiotics per ID - wound care - Surgery eval - pain control - continue with eyedrops - monitr labs Ashok Weeks M.D. Jan 12, 2021 18:54
[2021-01-12 20:00] VITALS: BP 151/99
[2021-01-12] MEDS: Vancomycin 750 MG in NS 275 ML IVPB SCH (20:17)
[2021-01-13] VITALS: BP 138/79
[2021-01-13 04:00] VITALS: BP 137/79
[2021-01-13] MEDS: HYDROcodone/Acetamin 10/325 tab ORAL PRN ×2 (05:36→11:42)
[2021-01-13 08:00] VITALS: BP 148/91
--- NOTE | 2021-01-13 08:47 | Internal Med Progress Note ---
Subjective Physician Name Ashok Weeks Attending Physician Ashok Weeks M.D. Current Medications Medications (Trade) Dose Ordered Sig/Ishmael Route PRN Reason Start Time Stop Time Status Last Admin Dose Admin Acetaminophen/ Hydrocodone Bitart ([place] 10325) 1 tab Q6HR PRN ORAL For Pain 01/07/21 18:15 01/14/21 18:14 01/13/21 05:36 Alprazolam (Xanax) 0.5 mg DAILY PRN ORAL For Anxiety 01/08/21 17:30 01/15/21 17:29 01/12/21 12:08 Cefepime HCl 2 gm/ Dextrose 100 ml @ 200 mls/hr Q24H IVPB 01/09/21 21:00 01/16/21 20:59 01/12/21 20:17 Heparin Sodium (Porcine) (Heparin 5000 units/ml) 5,000 units EVERY 12 HOURS SUBQ 01/07/21 21:00 02/21/21 20:59 01/12/21 20:17 Vancomycin HCl ([facility] pharmacy to dose) 1 ea DAILY PRN MISC Per rx protocol 01/07/21 18:45 02/06/21 18:44 Vancomycin HCl 750 mg/Sodium Chloride 275 ml @ 183.333 mls/hr Q24H IVPB 01/11/21 20:00 01/16/21 19:59 01/12/21 20:17 Allergies: Coded Allergies: CODEINE (Verified Allergy, Unknown, 01/07/21) MORPHINE (Verified Allergy, Unknown, 07/22/12) ROS Limited/Unobtainable: No Constitutional: Reports: weakness Cardiovascular: Denies: no symptoms, chest pain, edema, irregular heart rate, lightheadedness, palpitations, syncope, other Respiratory: Denies: no symptoms, cough, orthopnea, shortness of breath, SOB with excertion, SOB at rest, sputum, stridor, wheezing, other Gastrointestinal/Abdominal: Denies: no symptoms, abdomen distended, abdominal pain, black stools, tarry stools, blood in stool, constipated, diarrhea, difficu lty swallowing, nausea, poor appetite, poor fluid intake, rectal bleeding, vomiting, other Genitourinary: Denies: no symptoms, burning, discharge, frequency, flank pain, hematuria, incontinence, pain, urgency, other Neurologic/Psychiatric: Denies: no symptoms, anxiety, depressed, emotional problems, headache, numbness, paresthesia, pre-existing deficit, seizure, tingling, tremors, weakness, other Subjective pain controlled feeling weak Blood cx growing gram positive cocci echo Normal left ventricular chamber size, systolic function and wall motion. Left ventricular ejection fraction estimated to be 60 %. No evidence of left ventricular hypertrophy. No evidence of pericardial effusion. All other cardiac chamber sizes are within normal limits. Focal aortic valve sclerosis with adequate cusp excursion. Thickened mitral valve leaflets with normal excursion. Mitral annulus and aortic root calcification. Pulmonic valve not well visualized. Normal tricuspid valve structure. IVC measures at 2.1 cm and with slight physiologic collapse. No discrete vegetations seen, however SBE may not be excluded by transthoracic 2-D echo. Objective Last Vital Signs Date Time Temp Pulse Resp B/P (MAP) Pulse Ox O2 Delivery O2 Flow Rate FiO2 01/13/21 04:00 98.6 74 20 137/79 (98) 97 01/12/21 21:00 Room Air Microbiology Date/Time Source Procedure Growth Status 01/10/21 17:10 Nasopharynx Coronavirus COVID-19 PCR ([facility]) - Final Complete Intake and Output 01/12/21 01/13/21 19:00 07:00 Intake Total 560 ml Output Total 700 ml Balance 560 ml -700 ml Intake Oral 560 ml Output Urine Total 700 ml Objective General appearance: alert, cooperative, no distress, appears stated age Head: Normocephalic, without obvious abnormality, atraumatic Eyes: conjunctivae/corneas clear. PERRL, EOM's intact. Fundi benign Throat: Lips, mucosa, and tongue normal. Teeth and gums normal Neck: supple, symmetrical, trachea midline, no adenopathy, thyroid: not en larged, symmetric, no tenderness/mass/nodules, no carotid bruit and no JVD Lungs: clear to auscultation bilaterally Heart: regular rate and rhythm, S1, S2 normal, no murmur, click, rub or gallop Abdomen: soft, non-tender. Bowel sounds normal. No masses, no organomegaly Extremities: left leg lateral ulceration Pulses: 2+ and symmetric Skin: Skin color, texture, turgor normal. No rashes or lesions Neurologic: Grossly normal Assessment/Plan Assessment/Plan #Left leg ulceration with surrounding cellulitis s/p fall #gram pos bactremia #s/p fall #HTN #HLD #Glocuma - admit inpatient - ID eval - continue antibiotics per ID - wound care - Surgery eval - pain control - continue with eyedrops - monitr labs Ashok Weeks M.D. Jan 13, 2021 08:47
[2021-01-13] MEDS: Dorzolamide 2% 10ml Btl BOTH EYES SCH ×2 (11:43→13:01)
[2021-01-13] MEDS: Heparin 5000 units/ml inj SUBQ SCH (11:44)
[2021-01-13 12:00] VITALS: BP 156/91
[2021-01-13] MEDS ORDERED: CEPHALEXIN500 M1 ORAL (13:06)
[2021-01-13] MEDS ORDERED: DOXYCYCLINE MO100 MG ORAL (13:10)
--- NOTE | 2021-01-13 14:47 | Surgery Progress Note ---
Surgery Progress Note Subjective Symptoms: improved, tolerating diet, passing flatus, BM Additional Comments dressings changed wound improving wants to go to snf Objective Last 24 Hour Vital Signs Date Time Temp Pulse Resp B/P (MAP) Pulse Ox O2 Delivery O2 Flow Rate FiO2 01/13/21 12:00 98.0 96 20 156/91 (112) 98 01/13/21 09:00 Room Air 01/13/21 08:00 98.1 93 20 148/91 (110) 98 01/13/21 04:00 98.6 74 20 137/79 (98) 97 01/13/21 00:00 98.4 64 20 138/79 (98) 98 01/12/21 21:00 Room Air 01/12/21 20:00 97.3 82 20 151/99 (116) 99 01/12/21 16:00 97.1 82 20 122/93 (103) 97 01/12/21 15:27 97.9 I&O Intake and Output 01/12/21 01/13/21 19:00 07:00 Intake Total 560 ml Output Total 700 ml Balance 560 ml -700 ml Intake Oral 560 ml Output Urine Total 700 ml Dressing: saturated Wound: clean Cardiovascular: RSR Respiratory: clear Abdomen: soft, flat, non-tender, present bowel sounds Extremities: tenderness, no edema, no cyanosis, pulses, other Plan Problems: (1) Dizziness (2) Grief reaction (3) Chronic pain (4) PTSD (post-traumatic stress disorder) (5) Cellulitis of left lower extremity Assessment & Plan: 72-year-old female recent trauma identified to have cellulitis of left lower extremity mid calf posterior noted mild oozing small less than 1 cm laceration no purulent drainage no abscess. Wound washed dressings applied. identified abrasion to the skin blood blister keep leg elevated while in bed antibiotics per infectious disease okay for diet we will continue with local wound care and monitor for improvement thank you light participation's care Bony mineralization within normal limits. No acute fracture is identified. There are degenerative changes partially visualized in the left knee joint. Partially visualized ankle joint appears maintained. No radiopaque foreign body. Impression: No acute fracture or dislocation. US noted. no dvt wound noted today with hematoma that was evacuated. 3cm x 3cm area open with soft tissue exposed. no pus, mild oozing blood wound washed. new dressings applied betadine swab, therahoney and wrap cont dressings plan d/c home with home health or snf place ment needs pt/ot walker discussed with patient gait training (6) malfunction of pouch Natan Goins Jan 13, 2021 14:47
[2021-01-13] MEDS ORDERED: Latanoprost 0.005% Opth 2.5ml Soln BOTH EYES SCH (21:00)
--- NOTE | 2021-01-15 12:30 | Discharge Summary ---
Discharge Summary Discharge Summary _ Date of admission: 01/07/2021 Date of discharge: 1 01/14/[address] Weeks History of Present Illness and Brief Hospital Course Ms. Sandhu is a 80-year-old female with past medical history of hypertension, who presented to the ED for evaluation of left leg wound. She stated that she tripped and fell and scraped her leg a week prior to presentation. Initial laboratory studies were remarkable for no leukocytosis, stable H&H, and no electrolyte abnormalities. Wound culture was obtained and was given empiric antibiotics. Patient was admitted to the hospital for further management. Patient was identified to have cellulitis of left lower extremity without purulent drainage or abscess. Tibia/fibula x-ray demonstrated no acute fracture or dislocation. Wound culture was negative for growth. Positive blood cultures were likely contaminations. The follow-up blood cultures were negative. Patient was continued on antibiotics which were adjusted accordingly. Patient was also evaluated with transthoracic echocardiogram which revealed no vegetations. Patient was medically stable for discharge and was discharged to a SNF on 01/13/2021. Patient was noted to have ileostomy which patient was able to self- intubate. Consultants: Surgery Dr. Goins Infectious disease Dr. Ramsey Discharge Condition Improved and stable Discharge Activity As tolerated Discharge Diet Regular Final diagnoses Left leg ulceration with surrounding cellulitis status post fall Gram-positive bacteremia Hypertension Hyperlipidemia Glaucoma I have been assigned to dictate discharge summary for this account. I was not involved in the patient's management Kingston Albarran Jan 15, 2021 12:30
== END 2021-01-13 15:35 | DRG 603 ==
LOC: EMR 14:07 → 4E 15:25 → EDBEDREQ 16:29
DX: L03.116 Cellulitis of left lower limb (principal); S81.802A Unspecified open wound, left lower leg, initial encounter; W01.0XXA Fall on same level from slipping, tripping and stumbling without subsequent striking against object, initial encounter; F43.10 Post-traumatic stress disorder, unspecified; Z88.6 Allergy status to analgesic agent; Z87.19 Personal history of other diseases of the digestive system; Z93.2 Ileostomy status; R42 Dizziness and giddiness; G89.29 Other chronic pain; F43.20 Adjustment disorder, unspecified; I10 Essential (primary) hypertension; E78.5 Hyperlipidemia, unspecified; H40.9 Unspecified glaucoma
CPT/HCPCS: 36415; 71045; 80053; 80202; 81003; 83605; 83735; 84100; 85025; 85651; 86140; 87040; 87070; 87181; 87205; 93306; 93970; 96361; 96365; 99285